=== PATIENT | female | born 1950 | race Caucasian/White ===

== ENCOUNTER 2021-10-09 14:18 | Outpatient (NON) | payer OTHER, SELFPAY ==
[2021-10-09 14:26] LABS: Hematocrit 42.4 % (35.0-42.0); Hemoglobin 13.9 g/dL (11.7-13.8); Mean Corpuscular HGB Conc 32.8 g/dL (32.0-36.0); Mean Corpuscular Hemoglobin 31.6 pg (27.0-31.0); Mean Corpuscular Volume 96.4 fL (78.0-102.0); Platelet Count Result 222 K/mm3 (150-420); Red Cell Distribution Width 13.8 % (11.6-14.4); White Blood Count 7.5 K/mm3 (4.8-10.8)
[2021-10-09 14:40] LABS: Alanine Aminotransferase 21 U/L (14-59); Albumin Level 2.8 g/dL (3.4-5.0); Alkaline Phosphatase 123 U/L (46-116); Anion Gap 5 mmol/L (8-16); Aspartate Amino Transferase 19 U/L (15-37); Bilirubin,Total 0.3 mg/dL (0.00-1.00); Blood Urea Nitrogen 24 mg/dL (7-18); Calcium 8.9 mg/dL (8.5-10.1); Carbon Dioxide 32 mmol/L (21-32); Chloride 102 mmol/L (98-108); Estimated Glomerular Filt Rate > 60; Glucose 96 mg/dL (70-99); Osmolality Calculated 292 mOsm/kg (285-295); Sodium 139 mmol/L (136-145); Total Protein 7.6 g/dL (6.4-8.2)
[2021-10-12 09:03] LABS: Levetiracetam Keppra 13.9
== END 2021-10-09 14:19 | disposition home or self-care (01) ==
LOC: CHSLAB 14:20
PROVIDERS: PCP Nurse Practitioner Family; Visit Provider Nurse Practitioner Family
DX: G40.909 Epilepsy, unspecified, not intractable, without status epilepticus (principal); Z00.00 Encounter for general adult medical examination without abnormal findings; Z78.9 Other specified health status; G93.40 Encephalopathy, unspecified
CPT/HCPCS: 36415; 80053; 80177; 85027

== ENCOUNTER 2022-08-16 12:30 | Emergency (ER) | payer MEDICARE, MEDICAID, SELFPAY ==
[2022-08-16] VITALS (20 sets, daily range): BP systolic 120–145; BP diastolic 60–81; PULSE 57–67; RESP 10–25; TEMP 36.4; O2SAT 97–100
--- NOTE | ~2022-08-16 | CT_ITS ---
EXAMINATION: CT abdomen pelvis w con DATE: 08/16/2022 14:03 INDICATION: Coffee-ground gastric contents. Diarrhea for one week TECHNIQUE: Computed tomography (CT) of the abdomen and pelvis was performed with 100 CC Omnipaque 350 intravenous contrast. Automated exposure control and iterative reconstruction technique were employe d. Exam dose: 269.90 mGy-cm total exam DLP. COMPARISON: 02/14/2016 CT abdomen pelvis 06/18/2018 KUB FINDINGS: Mild dependent atelectasis in the lower lobes. Cardiomegaly. No pericardial or pleural effu kevon. No hepatic space-occupying mass lesion is evident. The gallbladder is distended with chronic thickeni ng of the gallbladder wall. The common bile duct measures up to approximately 6.5 mm diameter, stable since 02/14/2016. No pancreatic mass lesion or calcification or pancreatic duct dilatation. Normal morphology of the adrenal glands. No renal mass lesion or urinary tract calculus or hydroureteronephrosis is detected. Gastrostomy tube in stomach. There is a very prominent amount of fecal material in the rectum and colon. No bowel obstruction or i ntraperitoneal free air is evident. This fluid in the endometrial cavity of uterus, measuring up to 6.7 mm AP dimension. The adnexal area s and urinary bladder appear unremarkable. There is atherosclerotic calcification but normal caliber of the abdominal aorta. No intraperitoneal or retroperitoneal or pelvic mass lesion or adenopathy or ascites. Chronic ununited left femoral neck fracture. Osteopenia. IMPRESSION: Gastrostomy tube in stomach Very prominent of fecal material in the rectum and colon consistent with constipation Fluid in the endometrial cavity Chronic distended gallbladder with chronic thickening of the wall, also present on 02/14/2016 Reviewed, dictated and finalized at Location [facility]. Reviewed, dictated and finalized at location B. IMPRESSION: Gastrostomy tube in stomach Very prominent of fecal material in the rectum and colon consistent with consti pation Fluid in the endometrial cavity Chronic distended gallbladder with chronic thickening of the wall, also present on 02/14/2016
[2022-08-16 13:26] LABS: Basophils Percent Auto 0.6 % (0.2-1.2); Eosinophils Absolute Auto 0.4 K/mm3 (0-0.3); Eosinophils Percent Auto 5.2 % (0-4.4); Hematocrit 42.6 % (37.0-47.0); Hemoglobin 13.7 g/dL (12.0-15.0); Immature Granulocyte Absolute 0.02 K/mm3 (0.00-0.031); Immature Granulocyte Percent A 0.3 % (0-0.5); Lymphocytes Absolute Auto 2.63 K/mm3 (0.9-3.2); Lymphocytes Percent Auto 36.7 % (18.3-44.2); Mean Corpuscular HGB Conc 32.2 g/dl (32-36); Mean Corpuscular Hemoglobin 31.4 pg (26-34); Mean Corpuscular Volume 97.7 fl (80-100); Mean Platelet Volume 10.3 fl (7.4-10.4); Monocytes Absolute Auto 0.8 K/mm3 (0.1-0.6); Monocytes Percent Auto 10.5 % (2.6-8.5); Neutrophils Absolute Auto 3.4 K/mm3 (1.3-6.7); Neutrophils Percent Auto 46.7 % (45.5-73.1); Platelet Count Result 230 k/mm3 (150-375); Red Blood Count 4.36 M/mm3 (4.2-5.4); Red Cell Distribution Width 13.2 % (11.5-14.5); White Blood Count 7.2 K/mm3 (4.5-10.0)
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
[2022-08-16 13:36] LABS: Alanine Aminotransferase 18 U/L (6-35); Albumin Level 3.6 g/dL (3.5-5.1); Alkaline Phosphatase 111 U/L (38-126); Aspartate Amino Transferase 24 U/L (14-36); Bilirubin,Total 0.5 mg/dL (0.2-1.3); Blood Urea Nitrogen 30 mg/dL (7-17); Calcium 8.2 mg/dL (8.4-10.2); Carbon Dioxide > 40 mmol/L (22-30); Chloride 97 mmol/L (98-107); Estimated Glomerular Filt Rate > 60; Glucose 101 mg/dL (65-110); Lipase 110 U/L (23-300); Potassium 3.8 mmol/L (3.4-5.0); Sodium 137 mmol/L (137-145)
[2022-08-16] MEDS: SODIUM CHLORIDE 0.9% IV 1,000 ML 999 ML IV CONT (14:13)
[2022-08-16 15:44] LABS: Appearance Urine Clear (Clear); Bacteria Urine None Seen /hpf; Bilirubin Urine Negative (Negative); Blood Urine 3+ (Negative); Color Urine Yellow (Yellow); Glucose Urine UA Negative (Negative); Ketones Urine Negative (Negative); Leukocyte Esterase Ur 2+ LEU/UL (Negative); Nitrate Urine Negative (Negative); Non Pathogenic Casts 0-2; Protein Urine Negative (Negative); RBC Urine 21-50 /hpf (0-2); Specific Grav Ur 1.025 (1.001-1.035); Squamous Epithelial Cell Urine None seen /hpf (Few); pH Urine 8.5 (5.0-9.0)
[2022-08-16 15:54] LABS: Add Urine Microscopic? YES
--- NOTE | 2022-08-16 17:31 | PC.NURSE ---
1720 Soto declined 1730 Yeny Ems-accepted per house sup next on list
== END 2022-08-16 19:37 | disposition home or self-care (01) ==
PROVIDERS: Emergency Provider Emergency Medicine; PCP Nurse Practitioner Family
DX: K59.00 Constipation, unspecified (principal); Z43.1 Encounter for attention to gastrostomy; G40.909 Epilepsy, unspecified, not intractable, without status epilepticus; G83.9 Paralytic syndrome, unspecified; S09.90XS Unspecified injury of head, sequela; R31.9 Hematuria, unspecified; D72.829 Elevated white blood cell count, unspecified; V89.2XXS Person injured in unspecified motor-vehicle accident, traffic, sequela; Z87.820 Personal history of traumatic brain injury
CPT/HCPCS: 36415; 74177; 80053; 81001; 83690; 85025; 86850; 86900; 86901; 87086; 87088; 96360; 99284; J7030; Q9967

== ENCOUNTER 2024-03-17 19:23 | Emergency (ER) | payer MEDICARE, MEDICAID, SELFPAY ==
--- NOTE | ~2024-03-17 | XR_ITS ---
EXAMINATION: XR abdomen gastric tube rechec DATE: 03/17/2024 19:49 INDICATION: Gastrostomy tube replacement. TECHNIQUE: A supine view of the abdomen on 2 radiographs was obtained. COMPARISON: CT abdomen and pelvis 08/16/2022 FINDINGS: There are no dilated loops of bowel. There is a large volume of stool in the colon. There i s a gastrostomy tube in expected position. There is contrast in the tube and in the stomach and duode num. There is an old fracture of left femoral neck with nonunion. IMPRESSION: 1. Gastrostomy tube in expected position. Reviewed, dictated and finalized at location A. [employer] MA[employer]GER
[2024-03-17 19:30] VITALS: BP 159/72; BP 177/74; PULSE 65; PULSE 67; RESP 17; TEMP 35.9; O2SAT 96; O2SAT 98
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
== END 2024-03-17 20:18 ==
PROVIDERS: Emergency Provider Internal Medicine Critical Care Medicine; PCP Family Medicine
DX: Z43.1 Encounter for attention to gastrostomy (principal); G82.50 Quadriplegia, unspecified; S06.9XAS Unspecified intracranial injury with loss of consciousness status unknown, sequela; X58.XXXS Exposure to other specified factors, sequela
CPT/HCPCS: 43762; 99283

== ENCOUNTER 2024-03-18 06:48 | Emergency (ER) | payer MEDICARE, MEDICAID, SELFPAY ==
--- NOTE | ~2024-03-18 | XR_ITS ---
Supine portable view of the abdomen Clinical history: G-tube placement Findings: Percutaneous gastrostomy tube is present, with contrast and NG tube are opacifying proximal small bowel. No abnormal extravasation of contrast evident. Bowel gas pattern is nonspecific. No melony dence for obstruction or free air. No abnormal mass lesion or calcification is seen. Osseous structur es are intact. Impression: Percutaneous gastrostomy tube appropriately located. No abnormal extravasation of contrast. Reviewed, dictated and finalized at location M. WIRER Impression: Percutaneous gastrostomy tube appropriately located. No abnormal extravasation of contrast.
[2024-03-18 06:54] VITALS: PULSE 75; RESP 18; TEMP 35.9; O2SAT 99
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
--- NOTE | 2024-03-18 07:07 | PC.NURSE ---
RN and machines technician attempted to obtain patient blood pressure several times upon patient arrival without success due to patient contracture. Patient report passed to day shift (Torito) for continuity of care, including need for blood pressure to be re-attempted. patient given multiple warm blankets for comfort and adjusted on stretcher.
[2024-03-18 07:20] VITALS: BP 136/79
[2024-03-18 08:05] VITALS: BP 136/79; PULSE 75; RESP 18; O2SAT 94
--- NOTE | 2024-03-18 08:06 | PC.NURSE ---
call to [facility] for transport back to [facility]. awaiting arrival.
== END 2024-03-18 08:41 | disposition home or self-care (01) ==
PROVIDERS: Emergency Provider Emergency Medicine; PCP Family Medicine
DX: Z43.1 Encounter for attention to gastrostomy (principal)
CPT/HCPCS: 99283

== ENCOUNTER 2024-03-19 01:20 | Emergency (ER) | payer MEDICARE, MEDICAID, SELFPAY ==
[2024-03-19 01:20] VITALS: BP 100/74; PULSE 70; RESP 20; TEMP 36.6; O2SAT 97
--- NOTE | 2024-03-19 01:30 | PC.NURSE ---
Pts g-tube flushed w/ 60ml water slowly to gravity per order. Pt tolerated well and no blockage or overflow noted fro g-tube site.
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
--- NOTE | 2024-03-19 01:45 | PC.NURSE ---
Call back [facility] to [facility] Chantal. Report given about pt return and that g-tube site works well. Informed that pt is coming back w/ order to hold G-tube feedings ann and f/u w/ PCP and GI in AM. [facility] here on standby to return pt.
[2024-03-19 01:50] VITALS: BP 111/68; PULSE 71; RESP 18; O2SAT 98
== END 2024-03-19 01:50 ==
LOC: CHSED 01:58
PROVIDERS: Emergency Provider Emergency Medicine; PCP Family Medicine
DX: K94.23 Gastrostomy malfunction (principal)
CPT/HCPCS: 99282

== ENCOUNTER 2024-03-25 07:46 | Inpatient (IN) | payer MEDICARE, MEDICAID, SELFPAY ==
[2024-03-25] VITALS (17 sets, daily range): BP systolic 105–145; BP diastolic 56–91; PULSE 82–101; RESP 16–24; TEMP 36.9–37.9; O2SAT 91–100; BMI 15.7
--- NOTE | ~2024-03-25 | CT_ITS ---
EXAMINATION: CT chest abdomen pelvis w con DATE: 03/25/2024 08:59 INDICATION: Sepsis. Infected G-tube site. Cough and fever. TECHNIQUE: Computed tomography (CT) of the chest, abdomen, and pelvis was performed with 100 mL Omnip aque-350 intravenous contrast. Automated exposure control and iterative reconstruction technique were employed. The dose-length product was 306.16 mGy-cm. COMPARISON: 08/16/2022 FINDINGS: CHEST CT: Right middle lobe collapse. There is also near complete collapse of the left lower lobe and lingula. There is a region of hypoenhancement within the collapsed portion of the left lower lobe particularly in the superior segment suggesting superimposed pneumonia. There is additional mild dependent atelec tasis in the right lower lobe. No pulmonary edema or pleural effusion. Heart size is normal. Atherosc lerotic coronary artery calcific location. No pericardial effusion. Thoracic aorta is normal in calib er with no dissection. No pathologically enlarged thoracic lymphadenopathy. Mild thoracic levoscolios is with mild spondylosis. ABDOMEN/PELVIS CT: Percutaneous gastrostomy tube bulb in the distal body the stomach. Stable appearance of the gallbladd er with chronic wall thickening and fixed fold extending across the midportion of the gallbladder lik albertina sequela of chronic cholecystitis. The mild spondylosis underlying the left hemidiaphragm. Liver, pancreas, bilateral adrenal glands and right kidney are normal. Interval 8 mm exophytic cyst at the l ower pole of the left kidney. Large amount of colonic stool with 8.7 x 7.9 cm all of stool at the rec tom consistent with and constipation and fecal impaction. There are few diverticula along the descend ing and sigmoid colon without adjacent inflammatory change to suggest diverticulitis. Small bowel and appendix are normal. The stool-filled rectum exerts mass effect upon the normal bladder as well as a nteverted uterus. The endometrial complex appears mildly thickened measuring 6 mm. Bilateral adnexa a re unremarkable. No free intraperitoneal gas or fluid. No pathologically enlarged abdominal or pelvic lymphadenopathy. 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 IMPRESSION: 1. Collapse of the right middle lobe and in near complete collapse of the left lower lobe and lingula with regions of hypoenhancement in the collapsed left lower lobe suspicious for superimposed pneumon ia. 2. Stable appearance of the gallbladder with thickened murguia and unchanged central foraminal likely s equela of chronic cholecystitis. 3. Large amount of colonic stool with 8.7 cm ball of stool at rectum consistent with constipation wit h fecal impaction. 4. Endometrial complex measures 6 mm which would be mildly thickened in the absence of hormone replac ement. Correlate with medication history and for any abnormal uterine bleeding and could consider pel payton ultrasound for further evaluation as clinically indicated. 5. Chronic nonunited fracture at the left femoral neck with significant secondary osteolysis with los s of bone stock at the femoral head and neck. 6. Percutaneous gastrostomy tube in the body the stomach. 7. Mild splenosis in the left upper quadrant. Reviewed, dictated and finalized at location A. [employer] IMPRESSION: 1. Collapse of the right middle lobe and in near complete collapse of the left lower lobe and lingula with regions of hypoenhancement in the collapsed left lo wer lobe suspicious for superimposed pneumonia. 2. Stable appearance of the gallbladder with thickened murguia and unchanged cent ral foraminal likely sequela of chronic cholecystitis. 3. Large amount of colonic stool with 8.7 cm ball of stool at rectum consistent with constipation with fecal impaction. 4. Endometrial complex measures 6 mm which would be mildly thickened in the abs ence of hormone replacement. Correlate with medication history and for any abno rmal uterine bleeding and could consider pelvic ultrasound for further evaluati on as clinically indicated. 5. Chronic nonunited fracture at the left femoral neck with significant seconda ry osteolysis with loss of bone stock at the femoral head and neck. 6. Percutaneous gastrostomy tube in the body the stomach. 7. Mild splenosis in the left upper quadrant.
[2024-03-25] MEDS: SODIUM CHLORIDE 0.9% IV 1,000 ML 999 ML IV CONT (07:46)
--- NOTE | 2024-03-25 07:48 | PC.NURSE ---
Per Family and EMS patient is baseline mental status.
--- NOTE | 2024-03-25 07:50 | ECG_ITS ---
Test Date: 2024-03-25 08:04:42 Measurements Intervals [place] Rate: 98 P: 100 SD: 128 QRS: 109 QRSD: 92 T: 62 QT: 337 QTc: 432 Interpretive Statements SINUS RHYTHM ARM LEADS REVERSED INCOMPLETE RIGHT BUNDLE BRANCH BLOCK BORDERLINE ST-T WAVE ABNORMALITY- ANTEROLAT/INF LEADS BORDERLINE ECG No previous ECG available for comparison Electronically Signed On 03-25-2024 08:25:07 WELL DRILL OPERATOR by Jules Harrison D.O.
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
--- NOTE | 2024-03-25 08:02 | PC.NURSE ---
Covid culture sent to lab
[2024-03-25 08:12] LABS: Hematocrit 41.9 % (35.0-42.0); Hemoglobin 14.3 g/dL (11.7-13.8); Mean Corpuscular HGB Conc 34.1 g/dL (32-36); Mean Corpuscular Hemoglobin 31.4 pg (27.0-31.0); Mean Corpuscular Volume 91.9 fL (78.0-102.0); Mean Platelet Volume 10.4 fl (9.2-11.8); Platelet Count Result 179 K/mm3 (150-420); Red Blood Count 4.56 M/mm3 (4.20-5.40); Red Cell Distribution Width 14.4 % (11.6-14.4)
[2024-03-25 08:17] LABS: White Blood Count 22.1 K/mm3 (4.8-10.8)
[2024-03-25 08:26] LABS: Band Neutrophils Percent 9 % (0-6); Basophils Percent Manual 0 % (0-1); Eosinophils Percent Manual 0 % (1-6); Lymphocytes Absolute Manual 0.66 K/mm3 (1.1-4.5); Lymphocytes Percent Manual 3 % (18-44); Monocytes Absolute Manual 0.66 K/mm3 (0.1-0.90); Monocytes Percent Manual 3 % (3-9); Neutrophils Absolute Manual 20.77 K/mm3 (1.7-7.2); Neutrophils Percent Manual 85 % (46-73); Platelet Estimate Adequate (Adequate); Total Cells Counted 100
[2024-03-25 08:27] LABS: Alanine Aminotransferase 22 U/L (14-59); Albumin Level 2.1 g/dL (3.4-5.0); Alkaline Phosphatase 144 U/L (46-116); Anion Gap 9 mmol/L (4-12); Aspartate Amino Transferase 20 U/L (15-37); Bilirubin,Total 0.4 mg/dL (0.00-1.00); Blood Urea Nitrogen 35 mg/dL (7-18); CRP 14.6 mg/dL (0.0-0.9); Calcium 8.1 mg/dL (8.5-10.1); Carbon Dioxide 35 mmol/L (21-32); Chloride 96 mmol/L (98-108); Estimated Glomerular Filt Rate > 60; Glucose 120 mg/dL (70-99); Lactic Acid Reflex 1.4 mmol/L (0.4-2.0); Osmolality Calculated 299 mOsm/kg (285-295); Sodium 140 mmol/L (136-145); Total Protein 7.4 g/dL (6.4-8.2); Troponin I 28.3 ng/L (0.00-60.4)
[2024-03-25] MEDS: PIPERACILLN/TAZ 3.375GM/NS50ML 3.375 GM/50 ML BAG IVPB (08:27)
[2024-03-25 08:30] LABS: Add Urine Microscopic? YES; Appearance Urine Clear (Clear); Bilirubin Urine Negative (Negative); Blood Urine 1+ (Negative); Color Urine Yellow (Yellow); Glucose Urine UA Negative (Negative); Ketones Urine Negative (Negative); Leukocyte Esterase Ur Negative LEU/UL (Negative); Nitrate Urine Negative (Negative); Protein Urine 2+ (Negative)
[2024-03-25 08:37] LABS: Bacteria Urine 1+ /hpf; Squamous Epithelial Cell Urine Few /hpf (Few); WBC Urine 0-3 /hpf (0-3)
[2024-03-25 08:46] LABS: SARS-CoV-2 RNA PCR Negative (Negative)
[2024-03-25 08:49] LABS: Influenza A QL RT-PCR Negative (Negative); Influenza B QL RT-PCR Negative (Negative); RSV RNA, RT-PCR Negative (Negative)
[2024-03-25] MEDS: KCL 40 MEQ/D5/0.9% SOD CHL 1,000 ML 100 ML IV CONT (09:37)
[2024-03-25] MEDS: VANCOMYCIN 1,000 MG/NS 250 ML 1,000 MG/250 ML BAG 250 MG IVPB (10:11)
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
[2024-03-25] MEDS: FUROSEMIDE INJ 20 MG/2 ML VIAL IV PUSH (11:40)
[2024-03-25] MEDS: IPRATROPIUM 0.5 MG/ALBUTEROL SULFATE 2.5 MG AMPUL.NEB 3 ML INHALATION ×2 (11:46→18:09)
[2024-03-25 13:09] LABS: MRSA (PCR) NOT DETECTED (NOT DETECTE)
--- NOTE | 2024-03-25 14:26 | PC.NURSE ---
Pt arrived on the unit from the ER. Purvi is a pt at [facility] ( [facility] ) . Pt is immobile and non responsive. Pt has contractures of upper and lower limbs. G tube is present but not being used at this time. The skin around the G tube is red and macerated with yellow drainage. Licensed Massage Practitioner has seen pt and assessed her. Pt's sister is the POAshleigh
[2024-03-25] MEDS: levETIRAcetam 500MG/NACL 100ML 500 MG/100 ML BAG 400 MG IVPB (21:51)
[2024-03-25] MEDS: TOLNAFTATE 1% POWDER 45 GM BTL 1 APPLIC TOPICAL (21:52)
[2024-03-26] VITALS (9 sets, daily range): BP systolic 128–136; BP diastolic 68–74; PULSE 78–98; RESP 16–20; TEMP 36.8–37.1; O2SAT 94–98
[2024-03-26 05:46] LABS: Hematocrit 37.8 % (35.0-42.0); Hemoglobin 12.9 g/dL (11.7-13.8); Mean Corpuscular HGB Conc 34.1 g/dL (32-36); Mean Corpuscular Hemoglobin 31.5 pg (27.0-31.0); Mean Corpuscular Volume 92.4 fL (78.0-102.0); Mean Platelet Volume 10.3 fl (9.2-11.8); Platelet Count Result 166 K/mm3 (150-420); Red Blood Count 4.09 M/mm3 (4.20-5.40); Red Cell Distribution Width 14.5 % (11.6-14.4)
[2024-03-26 05:50] LABS: White Blood Count 28.8 K/mm3 (4.8-10.8)
[2024-03-26 06:00] LABS: Band Neutrophils Percent 0 % (0-6); Basophils Percent Manual 0 % (0-1); Eosinophils Percent Manual 0 % (1-6); Lymphocytes Absolute Manual 2.59 K/mm3 (1.1-4.5); Lymphocytes Percent Manual 9 % (18-44); Monocytes Absolute Manual 2.01 K/mm3 (0.1-0.90); Monocytes Percent Manual 7 % (3-9); Neutrophils Absolute Manual 24.19 K/mm3 (1.7-7.2); Neutrophils Percent Manual 84 % (46-73); Platelet Estimate Adequate (Adequate)
[2024-03-26 06:01] LABS: Alanine Aminotransferase 13 U/L (14-59); Albumin Level 1.9 g/dL (3.4-5.0); Alkaline Phosphatase 137 U/L (46-116); Anion Gap 11 mmol/L (4-12); Aspartate Amino Transferase 11 U/L (15-37); Bilirubin,Total 0.7 mg/dL (0.00-1.00); Blood Urea Nitrogen 28 mg/dL (7-18); Calcium 8.2 mg/dL (8.5-10.1); Carbon Dioxide 30 mmol/L (21-32); Chloride 104 mmol/L (98-108); Estimated CRCL calculation 31 ml/min; Estimated Glomerular Filt Rate 58; Glucose 105 mg/dL (70-99); Magnesium 1.6 mg/dL (1.8-2.4); Osmolality Calculated 305 mOsm/kg (285-295); Potassium 3.1 mmol/L (3.5-5.1); Sodium 145 mmol/L (136-145); Total Protein 6.9 g/dL (6.4-8.2)
[2024-03-26] MEDS: IPRATROPIUM 0.5 MG/ALBUTEROL SULFATE 2.5 MG AMPUL.NEB 3 ML INHALATION ×3 (06:03→16:54)
[2024-03-26] MEDS: TOLNAFTATE 1% POWDER 45 GM BTL 1 APPLIC TOPICAL ×2 (08:31→21:40)
[2024-03-26] MEDS: ENOXAPARIN 40 MG/0.4 ML SYRINGE SUB-Q (08:32)
[2024-03-26] MEDS: levETIRAcetam 500MG/NACL 100ML 500 MG/100 ML BAG 400 MG IVPB ×2 (08:56→20:41)
[2024-03-26] MEDS: MAGNESIUM SULF 2 GM/WATER 50ML 2 GM/50 ML BAG IVPB (09:19)
[2024-03-26] MEDS: KCL 40 MEQ/D5/0.9% SOD CHL 1,000 ML 100 ML IV CONT ×2 (09:21→21:02)
[2024-03-26] MEDS: MEROPENEM 1 GM/NS 100 ML 1 GM/100 ML BAG IVPB ×2 (09:27→21:03)
--- NOTE | 2024-03-26 11:55 | PC.NURSE ---
changed to ip status @ 1002
--- NOTE | 2024-03-26 12:01 | P.PNIM_ITS ---
Progress Note: A&P Assessment and Plan (1) Sepsis: Code(s): A41.9 - Sepsis, unspecified organism Status: Acute Assessment and Plan: * patient meeting sepsis criteria with tachycardia, tachypnea, leukocytosis, l ow-grade temp, CT showing superimposed pneumonia, chronic cholecystitis, diverticulitis. after receiving IV fluids patient's heart rate and temperature improved and is now in the 80s. * initial lactic acid 1.4, white blood cell count 22.1 * patient was given 1 L of normal saline while in the ED * blood cultures were obtained * placed on Zosyn and vancomycin * Will check MRSA * WBC increased to 28.8, meropenem added to regimen (2) Pneumonia: Code(s): J18.9 - Pneumonia, unspecified organism Status: Acute Assessment and Plan: * CTA of the chest abdomen and pelvis showed collapse of the right middle lobe and near collapse of the left lower lobe and lingula with regions of hypoenhancement in the collapsed left lower lobe suspicious for superimposed pneumonia * currently on Zosyn and vancomycin * mycoplasma, urine strep, urine Legionella pending * MRSA negative * continue DuoNeb q.6 hours * currently on room air * will order chest PT TID as tolerated to help bring up secretions * aspiration precautions (3) Stercoral colitis: Code(s): K52.89 - Other specified noninfective gastroenteritis and colitis Status: Acute Assessment and Plan: * Large BM yesterday after fleets enema, more comfortable appearing today (4) Chronic cholecystitis: Code(s): K81.1 - Chronic cholecystitis Status: Acute Assessment and Plan: * CTA of the chest abdomen pelvis revealed chronic cholecystitis with sterile coral colitis * continue vancomycin and Zosyn * Increased WBC today 28.8, added meropenem (5) Malfunction of gastrostomy tube: Code(s): K94.23 - Gastrostomy malfunction Status: Acute Assessment and Plan: * patient has been seen 3 or 4 times here in the emergency room with G-tube complaints. The facility states that tube feeding has been leaking around the G-tube site causing skin breakdown * family does not want any intervention for the G-tube and does not want to be transferred to another hospital for GI consult regarding this. They want to just do IV antibiotics for a couple of days to see if the patient responds otherwise planning for hospice. * Case management consulted for hospice (6) Skin breakdown at gastrostomy tube site: Code(s): K94.29 - Other complications of gastrostomy Status: Acute Assessment and Plan: * appears fungal * cleanse area with wound cleanser and then apply nystatin powder daily or when dressing is saturated (7) Seizure disorder: Code(s): G40.909 - Epilepsy, unspecified, not intractable, without status epilepticus Status: Acute Assessment and Plan: * continue Keppra IV 500 b.i.d. (8) History of traumatic brain injury: Code(s): Z87.820 - Personal history of traumatic brain injury Status: Acute Assessment and Plan: of note Time Spent With Patient Time with patient: Greater than 35 minutes Subjective Date/time seen: 03/26/24 12:01 Interval history: Interval history: This is a 73-year-old female with a significant past medical history of severe TBI with G-tube placement, encephalopathy, seizures, quadriplegia who is brought to the ED for fever tachycardia and foul-smelling drainage from her G-tube site at her facility. She has been having issues with her G-tube not working for the past several days and has been evaluated in the ED 3 other times this past week. Most of the history of presenting illness is obtained from the EMR and family at the bedside due to patient being nonverbal at baseline. Workup in the hospital included an abdominal x-ray which shown a G-tube in expected position. 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 Initial labs showed a white blood cell count of 22.1, hemoglobin 14.3, bands 9%, potassium 3.0, chloride 96, calcium 8.1, alk-phos 144, C reactive protein 14.6. A UA was obtained which showed 2+ urine protein, 1+ urine blood, 4+ urine urobilinogen, 3-5 urine RBC, 1+ bacteria. Respiratory panel was obtained and negative for influenza a and B, RSV, COVID. Patient initially meeting sepsis criteria with pulse of 101, respiratory rate of 24, white blood cell count of 22.1, bandemia, known source of infection pneumonia, chronic cholecystitis, diverticulitis. Lactic acid was 1.4. Blood cultures were obtained and are pending. Patient was given 1 L of normal saline, Zosyn, vancomycin, 40 mEq of potassium while in the ED. The patient's sister is the POA and did not want to be sent to another hospital for for evaluation of her G- tube as they plan on making her hospice / comfort if she does not turn around with IV antibiotics. She also agreed to no escalation of care and is currently DNR DNI. I discussed her guarded prognosis and answered all of the POA's questions to satisfaction. Subjective: Patient appears more comfortable today. She has a stronger cough. Sister is at the bedside and was updated on her condition. Plan is to get hospice involved. Labs reviewed. Review of Systems Review of Systems: ROS unobtainable: Yes unobtainable due to medical condition and unobtainable due to mental status Exam Narrative: General: Chronically ill-appearing, severely malnourished Head: encephalopathic at baseline Eyes: PERRLA, sclera clear ENT: moist mucous membranes, nasal passages clear, poor dentition Cardiac: Normal S1 and S2. No murmur, gallops or friction rubs, peripheral pulses intact. Respiratory: Lungs course, weak nonproductive cough, currently on room air Gastrointestinal: soft, non-distended, non-tender, normoactive bowel sounds. G- tube in place and clamped : incontinence Extremities: contractures of bilateral upper extremity, quadriplegia Skin: skin around G-tube site appears to be fungal with erythema Neuro: Alert Objective Data Vital Signs Vital Signs: Vital Signs - 24 hr 03/25/24 12:02 03/25/24 16:00 03/25/24 18:11 Temperature 99.8 F H Pulse Rate 86 90 86 Respiratory Rate 22 H 24 H 22 H Blood Pressure 132/74 Pulse Oximetry 93 95 95 Oxygen Delivery Room Air 03/25/24 18:30 03/26/24 00:00 03/26/24 06:00 Temperature 98.2 F Pulse Rate 82 98 78 Respiratory Rate 22 H 16 20 Blood Pressure 136/68 Pulse Oximetry 96 98 95 Oxygen Delivery Room Air 03/26/24 06:08 03/26/24 08:00 Temperature 98.8 F Pulse Rate 82 92 Respiratory Rate 20 20 Blood Pressure 128/74 Pulse Oximetry 97 94 Oxygen Delivery Room Air Intake/Output Intake/Output: Intake & Output 03/23/24 03/24/24 03/25/24 03/26/24 23:59 23:59 23:59 23:59 Intake Total 2400 250 Balance 2400 250 Meds/Results Medications: Active Medications Generic Name Dose Route Start Last Admin Trade Name Freq PRN Reason Stop Dose Admin Albuterol/Ipratropium 3 ml 03/25/24 12:30 03/26/24 06:03 Ipratropium 0.5 Mg/Albuterol Sulfate 2.5 Mg Ampul.Neb 3 Ml INHALATION 3 ml Q6HRT VIRIDIANA Administration Clotrimazole 1 applic 03/25/24 17:00 03/26/24 09:22 Betamethasone/Clotrimazole Cream 15 Gm Tube TOPICAL Not Given BID VIRIDIANA Enoxaparin Sodium 40 mg 03/26/24 09:00 03/26/24 08:32 Enoxaparin 40 Mg/0.4 Ml Syringe SUB-Q 40 mg DAILY VIRIDIANA Administration Vancomycin HCl 750 mg in 250 mls @ 250 mls/hr 03/26/24 22:00 Vancomycin 750 Mg/Ns 250 Ml IVPB Q36H VIRIDIANA Levetiracetam 500 mg in 100 mls @ 400 mls/hr 03/25/24 21:00 03/26/24 09:15 Keppra Iv IVPB Infused Q12HR VIRIDIANA Infusion Potassium Chloride/Dextrose/Sod Cl 1,000 mls @ 100 mls/hr 03/26/24 08:50 03/26/24 09:21 Kcl 40 Meq/D5ns IV CONT 100 mls/hr .Q10H VIRIDIANA Administration Meropenem 1 gm in 100 mls @ 200 mls/hr 03/26/24 09:00 03/26/24 10:00 IVPB Infused Q12HR VIRIDIANA Infusion Morphine Sulfate 2 mg 03/25/24 10:32 Morphine Sulfate (*Crx) 2 Mg/Ml Inj IV PUSH Q4H PRN Pain Rated 7-10 Ondansetron HCl 4 mg 03/25/24 11:00 Ondansetron Inj 4 Mg/2 Ml Vial IV PUSH Q6H PRN Nausea And Vomiting Tolnaftate 1 applic 03/25/24 21:00 03/26/24 08:31 Tolnaftate 1% Powder 45 Gm Btl TOPICAL 1 applic Q12HR VIRIDIANA Administration Radiology Results: ITS Impressions Chest/Abdomen/Pelvis CT 03/25/24 09:14 IMPRESSION: 1. Collapse of the right middle lobe and in near complete collapse of the left lower lobe and lingula with regions of hypoenhancement in the collapsed left lower lobe suspicious for superimposed pneumonia. 2. Stable appearance of the gallbladder with thickened murguia and unchanged central foraminal likely sequela of chronic cholecystitis. 3. Large amount of colonic stool with 8.7 cm ball of stool at rectum consistent with constipation with fecal impaction. 4. Endometrial complex measures 6 mm which would be mildly thickened in the absence of hormone replacement. Correlate with medication history and for any abnormal uterine bleeding and could consider pelvic ultrasound for further evalu ation as clinically indicated. 5. 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 6. Percutaneous gastrostomy tube in the body the stomach. 7. Mild splenosis in the left upper quadrant. Labs Labs: Laboratory Results - last 24 hr 03/25/24 03/26/24 11:45 05:37 WBC 28.8 H* RBC 4.09 L Hgb 12.9 Hct 37.8 MCV 92.4 MCH 31.5 H MCHC 34.1 RDW 14.5 H Plt Count 166 MPV 10.3 Immature Gran % (Auto) Not Reportable Neut % (Auto) Not Reportable Lymph % (Auto) Not Reportable [place] % (Auto) Not Reportable Eos % (Auto) Not Reportable Baso % (Auto) Not Reportable Lymph # (Auto) Not Reportable [place] # (Auto) Not Reportable Eos # (Auto) Not Reportable Baso # (Auto) Not Reportable Abs Immat Gran (auto) Not Reportable Absolute Neuts (auto) Not Reportable Absolute Nucleated RBC Not Reportable Neutrophils % (Manual) 84 H Band Neutrophils % 0 Lymphocytes % (Manual) 9 L Monocytes % (Manual) 7 Eosinophils % (Manual) 0 L Basophils % (Manual) 0 Nucleated RBC % Not Reportable Abs Neuts (Manual) 24.19 H Abs Lymphs (Manual) 2.59 Abs Monocytes (Manual) 2.01 H Absolute Eos (Manual) 0.00 L Abs Basophils (Manual) 0.00 Platelet Estimate Adequate Schistocytes Not Reportable Sodium 145 Potassium 3.1 L Chloride 104 Carbon Dioxide 30 Anion Gap 11 BUN 28 H Creatinine 0.95 Estim Creat Clear Calc 31 Estimated GFR 58 L Glucose 105 H Calculated Osmolality 305 H Calcium 8.2 L Magnesium 1.6 L Total Bilirubin 0.7 AST 11 L ALT 13 L Alkaline Phosphatase 137 H Total Protein 6.9 Albumin 1.9 L Nasal MRSA (PCR) Not detected Quality VTE Prophylaxis VTE prophylaxis: pharmacologic ordered
[2024-03-26] MEDS: VANCOMYCIN 750 MG/NS 250 ML 750 MG/250 ML BAG 250 MG IVPB (21:36)
[2024-03-27] VITALS (9 sets, daily range): BP systolic 123–130; BP diastolic 59–62; PULSE 78–88; RESP 16–20; TEMP 36.3–36.8; O2SAT 94–98
[2024-03-27] MEDS: IPRATROPIUM 0.5 MG/ALBUTEROL SULFATE 2.5 MG AMPUL.NEB 3 ML INHALATION ×4 (00:52→18:08)
[2024-03-27 05:18] LABS: Basophils Absolute Auto 0.05 K/mm3 (0.00-0.10); Basophils Percent Auto 0.3 % (0.0-1.0); Eosinophils Absolute Auto 0.07 K/mm3 (0.02-0.50); Eosinophils Percent Auto 0.4 % (1.0-6.0); Hematocrit 35.2 % (35.0-42.0); Hemoglobin 11.2 g/dL (11.7-13.8); Immature Granulocyte Absolute 0.13 K/mm3 (0.00-0.00); Immature Granulocyte Percent A 0.7 % (0.0-0.0); Lymphocytes Absolute Auto 1.76 K/mm3 (1.10-4.50); Lymphocytes Percent Auto 9.1 % (18.0-42.0); Mean Corpuscular HGB Conc 31.8 g/dL (32-36); Mean Corpuscular Hemoglobin 30.8 pg (27.0-31.0); Mean Corpuscular Volume 96.7 fL (78.0-102.0); Mean Platelet Volume 10.8 fl (9.2-11.8); Monocytes Absolute Auto 1.23 K/mm3 (0.10-0.90); Monocytes Percent Auto 6.4 % (2.0-11.0); Neutrophils Absolute Auto 16.08 K/mm3 (1.70-7.20); Neutrophils Percent Auto 83.1 % (50.0-70.0); Platelet Count Result 149 K/mm3 (150-420); Red Blood Count 3.64 M/mm3 (4.20-5.40); Red Cell Distribution Width 14.8 % (11.6-14.4); White Blood Count 19.3 K/mm3 (4.8-10.8)
[2024-03-27 05:34] LABS: Alanine Aminotransferase 14 U/L (14-59); Albumin Level 1.7 g/dL (3.4-5.0); Alkaline Phosphatase 126 U/L (46-116); Anion Gap 10 mmol/L (4-12); Aspartate Amino Transferase 13 U/L (15-37); Bilirubin,Total 0.5 mg/dL (0.00-1.00); Blood Urea Nitrogen 24 mg/dL (7-18); Calcium 7.7 mg/dL (8.5-10.1); Carbon Dioxide 25 mmol/L (21-32); Chloride 113 mmol/L (98-108); Estimated CRCL calculation 41 ml/min; Estimated Glomerular Filt Rate > 60; Glucose 142 mg/dL (70-99); Osmolality Calculated 312 mOsm/kg (285-295); Potassium 3.6 mmol/L (3.5-5.1); Sodium 148 mmol/L (136-145); Total Protein 5.8 g/dL (6.4-8.2)
[2024-03-27] MEDS: KCL 40 MEQ/D5/0.9% SOD CHL 1,000 ML 100 ML IV CONT ×2 (07:28→17:27)
--- NOTE | 2024-03-27 08:15 | PC.NURSE ---
P:atient SPO2 88%, O2 applied at 2 l per n/c and SPO2 94%, all other vs stable and [employer] is aware.
[2024-03-27] MEDS: ENOXAPARIN 40 MG/0.4 ML SYRINGE SUB-Q (08:30)
[2024-03-27] MEDS: levETIRAcetam 500MG/NACL 100ML 500 MG/100 ML BAG 100 MG IVPB ×2 (08:30→21:12)
[2024-03-27] MEDS: MEROPENEM 1 GM/NS 100 ML 1 GM/100 ML BAG IVPB ×2 (08:54→21:35)
[2024-03-27] MEDS: TOLNAFTATE 1% POWDER 45 GM BTL 1 APPLIC TOPICAL ×2 (08:59→21:13)
--- NOTE | 2024-03-27 08:59 | P.PNIM_ITS ---
Progress Note: A&P Assessment and Plan (1) Sepsis: Code(s): A41.9 - Sepsis, unspecified organism Status: Acute Assessment and Plan: * patient meeting sepsis criteria with tachycardia, tachypnea, leukocytosis, l ow-grade temp, CT showing superimposed pneumonia, chronic cholecystitis, diverticulitis. after receiving IV fluids patient's heart rate and temperature improved and is now in the 80s. * initial lactic acid 1.4, white blood cell count 22.1 * patient was given 1 L of normal saline while in the ED * blood cultures were obtained * placed on Zosyn, meropenem, and vancomycin * MRSA negative * WBC down to 19.3 (2) Pneumonia: Code(s): J18.9 - Pneumonia, unspecified organism Status: Acute Assessment and Plan: * CTA of the chest abdomen and pelvis showed collapse of the right middle lobe and near collapse of the left lower lobe and lingula with regions of hypoenhancement in the collapsed left lower lobe suspicious for superimposed pneumonia * currently on Zosyn and vancomycin * mycoplasma, urine strep, urine Legionella pending * MRSA negative * continue DuoNeb q.6 hours * currently on room air * will order chest PT TID as tolerated to help bring up secretions * aspiration precautions (3) Stercoral colitis: Code(s): K52.89 - Other specified noninfective gastroenteritis and colitis Status: Acute Assessment and Plan: * Large BM on 03/25/2024 after fleets enema, more comfortable appearing today (4) Chronic cholecystitis: Code(s): K81.1 - Chronic cholecystitis Status: Acute Assessment and Plan: * CTA of the chest abdomen pelvis revealed chronic cholecystitis with sterile coral colitis * continue vancomycin, meropenem, and Zosyn * white blood cell count trending down (5) Malfunction of gastrostomy tube: Code(s): K94.23 - Gastrostomy malfunction Status: Acute Assessment and Plan: * patient has been seen 3 or 4 times here in the emergency room with G-tube complaints. The facility states that tube feeding has been leaking around the G-tube site causing skin breakdown * family does not want any intervention for the G-tube and does not want to be transferred to another hospital for GI consult regarding this per the sister who is secondary POA * Case management following * family and Priscilla, the patient's mother who is primary POA, would like to discuss things further with Dr. Merlos before making any decisions regarding hospice. (6) Skin breakdown at gastrostomy tube site: Code(s): K94.29 - Other complications of gastrostomy Status: Acute Assessment and Plan: * appears fungal * cleanse area with wound cleanser and then apply nystatin powder daily or when dressing is saturated (7) Seizure disorder: Code(s): G40.909 - Epilepsy, unspecified, not intractable, without status epilepticus Status: Acute Assessment and Plan: * continue Keppra IV 500 b.i.d. (8) History of traumatic brain injury: Code(s): Z87.820 - Personal history of traumatic brain injury Status: Acute Assessment and Plan: of note Time Spent With Patient Time with patient: 25 - 35 minutes Subjective Date/time seen: 03/27/24 14:23 Interval history: Interval history: This is a 73-year-old female with a significant past medical history of severe TBI with G-tube placement, encephalopathy, seizures, quadriplegia who is brought to the ED for fever tachycardia and foul-smelling drainage from her G-tube site at her facility. She has been having issues with her G-tube not working for the past several days and has been evaluated in the ED 3 other times this past week. Most of the history of presenting illness is obtained from the EMR and family at the bedside due to patient being nonverbal at baseline. Workup in the hospital included an abdominal x-ray which shown a G-tube in expected position. 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 Initial labs showed a white blood cell count of 22.1, hemoglobin 14.3, bands 9%, potassium 3.0, chloride 96, calcium 8.1, alk-phos 144, C reactive protein 14.6. A UA was obtained which showed 2+ urine protein, 1+ urine blood, 4+ urine urobilinogen, 3-5 urine RBC, 1+ bacteria. Respiratory panel was obtained and negative for influenza a and B, RSV, COVID. Patient initially meeting sepsis criteria with pulse of 101, respiratory rate of 24, white blood cell count of 22.1, bandemia, known source of infection pneumonia, chronic cholecystitis, diverticulitis. Lactic acid was 1.4. Blood cultures were obtained and are pending. Patient was given 1 L of normal saline, Zosyn, vancomycin, 40 mEq of potassium while in the ED. The patient's sister is the POA and did not want to be sent to another hospital for for evaluation of her G- tube as they plan on making her hospice / comfort if she does not turn around with IV antibiotics. She also agreed to no escalation of care and is currently DNR DNI. I discussed her guarded prognosis and answered all of the POA's questions to satisfaction. Subjective: Family at bedside, including Priscilla (mother of patient). Long discussion regarding patients current condition and quality of life. I answered all questions to satisfaction. Priscilla would like Dr. Bal's opinion on getting another G tube placed, quality of life, options of full treatment versus hospice. It was decided to wait until Friday to make any further decisions in regards to her care after they have time to discuss with Dr. Bal. labs reviewed. Review of Systems Review of Systems: ROS unobtainable: Yes unobtainable due to medical condition and unobtainable due to mental status Exam Narrative: General: Chronically ill-appearing, severely malnourished Head: encephalopathic at baseline Eyes: PERRLA, sclera clear ENT: moist mucous membranes, nasal passages clear, poor dentition Cardiac: Normal S1 and S2. No murmur, gallops or friction rubs, peripheral pulses intact. Respiratory: Lungs course, weak nonproductive cough, currently on room air Gastrointestinal: soft, non-distended, non-tender, normoactive bowel sounds. G- tube in place and clamped : incontinence Extremities: contractures of bilateral upper extremity, quadriplegia Skin: skin around G-tube site appears to be fungal with erythema with leakage around site Neuro: Alert Objective Data Vital Signs Vital Signs: Vital Signs - 24 hr 03/26/24 12:40 03/26/24 12:54 03/26/24 16:00 Temperature 98.7 F Pulse Rate 84 85 82 Respiratory Rate 20 20 20 Blood Pressure 128/72 Pulse Oximetry 98 98 95 Oxygen Delivery Room Air Oxygen Flow Rate 03/26/24 16:54 03/26/24 17:05 03/27/24 00:00 Temperature 98.2 F Pulse Rate 83 85 88 Respiratory Rate 20 20 16 Blood Pressure 129/61 Pulse Oximetry 97 98 95 Oxygen Delivery Room Air Oxygen Flow Rate 03/27/24 00:52 03/27/24 01:08 03/27/24 08:00 Temperature 97.4 F L Pulse Rate 88 86 80 Respiratory Rate 16 16 20 Blood Pressure 123/59 L Pulse Oximetry 95 96 94 Oxygen Delivery Nasal Cannula Oxygen Flow Rate 2 Intake/Output Intake/Output: Intake & Output 03/24/24 03/25/24 03/26/24 03/27/24 23:59 23:59 23:59 23:59 Intake Total 2400 1700 1000 Balance 2400 1700 1000 Meds/Results Medications: Active Medications Generic Name Dose Route Start Last Admin Trade Name Freq PRN Reason Stop Dose Admin Albuterol/Ipratropium 3 ml 03/25/24 12:30 03/27/24 06:26 Ipratropium 0.5 Mg/Albuterol Sulfate 2.5 Mg Ampul.Neb 3 Ml INHALATION 3 ml Q6HRT VIRIDIANA Administration Clotrimazole 1 applic 03/25/24 17:00 03/26/24 09:22 Betamethasone/Clotrimazole Cream 15 Gm Tube TOPICAL Not Given BID VIRIDIANA Enoxaparin Sodium 40 mg 03/26/24 09:00 03/27/24 08:30 Enoxaparin 40 Mg/0.4 Ml Syringe SUB-Q 40 mg DAILY VIRIDIANA Administration Vancomycin HCl 750 mg in 250 mls @ 250 mls/hr 03/26/24 22:00 03/26/24 22:36 Vancomycin 750 Mg/Ns 250 Ml IVPB Infused Q36H VIRIDIANA Infusion Levetiracetam 500 mg in 100 mls @ 400 mls/hr 03/25/24 21:00 03/27/24 08:30 Keppra Iv IVPB 100 mls/hr Q12HR VIRIDIANA Administration Potassium Chloride/Dextrose/Sod Cl 1,000 mls @ 100 mls/hr 03/26/24 08:50 03/27/24 07:28 Kcl 40 Meq/D5ns IV CONT 100 mls/hr .Q10H VIRIDIANA Administration Meropenem 1 gm in 100 mls @ 200 mls/hr 03/26/24 09:00 03/26/24 21:33 IVPB Infused Q12HR VIRIDIANA Infusion Morphine Sulfate 2 mg 03/25/24 10:32 Morphine Sulfate (*Crx) 2 Mg/Ml Inj IV PUSH Q4H PRN Pain Rated 7-10 Ondansetron HCl 4 mg 03/25/24 11:00 Ondansetron Inj 4 Mg/2 Ml Vial IV PUSH Q6H PRN Nausea And Vomiting Tolnaftate 1 applic 03/25/24 21:00 03/26/24 21:40 Tolnaftate 1% Powder 45 Gm Btl TOPICAL 1 applic Q12HR VIRIDIANA Administration Radiology Results: ITS Impressions Chest/Abdomen/Pelvis CT 03/25/24 09:14 IMPRESSION: 1. Collapse of the right middle lobe and in near complete collapse of the left lower lobe and lingula with regions of hypoenhancement in the collapsed left lower lobe suspicious for superimposed pneumonia. 2. Stable appearance of the gallbladder with thickened murguia and unchanged central foraminal likely sequela of chronic cholecystitis. 3. Large amount of colonic stool with 8.7 cm ball of stool at rectum consistent with constipation with fecal impaction. 4. Endometrial complex measures 6 mm which would be mildly thickened in the absence of hormone replacement. Correlate with medication history and for any abnormal uterine bleeding and could consider pelvic ultrasound for further evaluation as clinically indicated. 5. 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 6. Percutaneous gastrostomy tube in the body the stomach. 7. Mild splenosis in the left upper quadrant. Labs Labs: Laboratory Results - last 24 hr 03/27/24 04:54 WBC 19.3 H RBC 3.64 L Hgb 11.2 L Hct 35.2 MCV 96.7 MCH 30.8 MCHC 31.8 L RDW 14.8 H Plt Count 149 L MPV 10.8 Immature Gran % (Auto) 0.7 H Neut % (Auto) 83.1 H Lymph % (Auto) 9.[address] [facility] % (Auto) 6.4 Eos % (Auto) 0.4 L Baso % (Auto) 0.3 Lymph # (Auto) 1.76 [facility] # (Auto) 1.23 H Eos # (Auto) 0.07 Baso # (Auto) 0.05 Abs Immat Gran (auto) 0.13 H Absolute Neuts (auto) 16.08 H Absolute Nucleated RBC 0.00 Nucleated RBC % 0.0 Sodium 148 H Potassium 3.6 Chloride 113 H Carbon Dioxide 25 Anion Gap 10 BUN 24 H Creatinine 0.70 Estim Creat Clear Calc 41 Estimated GFR > 60 Glucose 142 H Calculated Osmolality 312 H Calcium 7.7 L Total Bilirubin 0.5 AST 13 L ALT 14 Alkaline Phosphatase 126 H Total Protein 5.8 L Albumin 1.7 L Quality VTE Prophylaxis VTE prophylaxis: pharmacologic ordered
[2024-03-28] VITALS (9 sets, daily range): BP systolic 130–143; BP diastolic 57–68; PULSE 66–96; RESP 18–21; TEMP 36.2–36.9; O2SAT 94–99
[2024-03-28] MEDS: IPRATROPIUM 0.5 MG/ALBUTEROL SULFATE 2.5 MG AMPUL.NEB 3 ML INHALATION ×4 (01:04→17:39)
[2024-03-28] MEDS: MORPHINE SULFATE (*CRX) 2 MG/ML INJ IV PUSH ×2 (01:05→22:23)
[2024-03-28] MEDS: KCL 40 MEQ/D5/0.9% SOD CHL 1,000 ML 100 ML IV CONT (02:45)
[2024-03-28 05:57] LABS: Basophils Absolute Auto 0.04 K/mm3 (0.00-0.10); Basophils Percent Auto 0.4 % (0.0-1.0); Eosinophils Absolute Auto 0.43 K/mm3 (0.02-0.50); Hematocrit 29.9 % (35.0-42.0); Hemoglobin 9.8 g/dL (11.7-13.8); Immature Granulocyte Absolute 0.07 K/mm3 (0.00-0.00); Immature Granulocyte Percent A 0.6 % (0.0-0.0); Lymphocytes Absolute Auto 2.36 K/mm3 (1.10-4.50); Lymphocytes Percent Auto 21.9 % (18.0-42.0); Mean Corpuscular HGB Conc 32.8 g/dL (32-36); Mean Corpuscular Hemoglobin 31.2 pg (27.0-31.0); Mean Corpuscular Volume 95.2 fL (78.0-102.0); Mean Platelet Volume 10.8 fl (9.2-11.8); Monocytes Absolute Auto 1.14 K/mm3 (0.10-0.90); Monocytes Percent Auto 10.6 % (2.0-11.0); Neutrophils Absolute Auto 6.74 K/mm3 (1.70-7.20); Neutrophils Percent Auto 62.5 % (50.0-70.0); Platelet Count Result 178 K/mm3 (150-420); Red Blood Count 3.14 M/mm3 (4.20-5.40); White Blood Count 10.8 K/mm3 (4.8-10.8)
[2024-03-28 07:18] LABS: Alanine Aminotransferase 24 U/L (14-59); Albumin Level 1.5 g/dL (3.4-5.0); Alkaline Phosphatase 103 U/L (46-116); Anion Gap 4 mmol/L (4-12); Aspartate Amino Transferase 23 U/L (15-37); Bilirubin,Total 0.4 mg/dL (0.00-1.00); Blood Urea Nitrogen 17 mg/dL (7-18); Calcium 7.7 mg/dL (8.5-10.1); Carbon Dioxide 27 mmol/L (21-32); Chloride 119 mmol/L (98-108); Estimated CRCL calculation 43 ml/min; Estimated Glomerular Filt Rate > 60; Glucose 105 mg/dL (70-99); Osmolality Calculated 311 mOsm/kg (285-295); Potassium 4.2 mmol/L (3.5-5.1); Sodium 150 mmol/L (136-145); Total Protein 5.9 g/dL (6.4-8.2)
[2024-03-28] MEDS: levETIRAcetam 500MG/NACL 100ML 500 MG/100 ML BAG 400 MG IVPB ×2 (08:06→20:59)
[2024-03-28] MEDS: ENOXAPARIN 40 MG/0.4 ML SYRINGE SUB-Q (08:07)
[2024-03-28] MEDS: DEXTROSE 5% 1,000 ML 1,000 ML 100 ML IV CONT ×2 (08:07→17:40)
[2024-03-28] MEDS: MEROPENEM 1 GM/NS 100 ML 1 GM/100 ML BAG IVPB ×2 (08:17→21:22)
[2024-03-28] MEDS: TOLNAFTATE 1% POWDER 45 GM BTL 1 APPLIC TOPICAL ×2 (08:22→21:34)
[2024-03-28 09:39] LABS: Vancomycin Trough 3.6 ug/mL (10.0-15.0)
[2024-03-28] MEDS: VANCOMYCIN 750 MG/NS 250 ML 750 MG/250 ML BAG 250 MG IVPB (10:13)
--- NOTE | 2024-03-28 11:03 | P.PNIM_ITS ---
Progress Note: A&P Assessment and Plan (1) Sepsis: Code(s): A41.9 - Sepsis, unspecified organism Status: Acute Assessment and Plan: * patient meeting sepsis criteria with tachycardia, tachypnea, leukocytosis, l ow-grade temp, CT showing superimposed pneumonia, chronic cholecystitis, diverticulitis. after receiving IV fluids patient's heart rate and temperature improved and is now in the 80s. * initial lactic acid 1.4, white blood cell count 22.1 * patient was given 1 L of normal saline while in the ED * blood cultures showing no growth to date on preliminary read * Continue Zosyn and meropenem * D/C vancomycin * MRSA negative * WBC down to 10.8 (2) Pneumonia: Code(s): J18.9 - Pneumonia, unspecified organism Status: Acute Assessment and Plan: * CTA of the chest abdomen and pelvis showed collapse of the right middle lobe and near collapse of the left lower lobe and lingula with regions of hypoenhancement in the collapsed left lower lobe suspicious for superimposed pneumonia * currently on Zosyn and vancomycin * mycoplasma, urine strep, urine Legionella pending * MRSA negative * continue DuoNeb q.6 hours * currently on room air * will order chest PT TID as tolerated to help bring up secretions * aspiration precautions (3) Stercoral colitis: Code(s): K52.89 - Other specified noninfective gastroenteritis and colitis Status: Acute Assessment and Plan: * Large BM on 03/25/2024 after fleets enema * Will give Lactulose enema today. * Start reglan IV (4) Chronic cholecystitis: Code(s): K81.1 - Chronic cholecystitis Status: Acute Assessment and Plan: * CTA of the chest abdomen pelvis revealed chronic cholecystitis with sterile coral colitis * continue meropenem, and Zosyn * Stop Vancomycin * white blood cell count WNL (5) Malfunction of gastrostomy tube: Code(s): K94.23 - Gastrostomy malfunction Status: Acute Assessment and Plan: * patient has been seen 3 or 4 times here in the emergency room with G-tube complaints. The facility states that tube feeding has been leaking around the G-tube site causing skin breakdown * family does not want any intervention for the G-tube and does not want to be transferred to another hospital for GI consult regarding this per the sister who is secondary POA * Case management following * family and Priscilla, the patient's mother who is primary POA, would like to discuss things further with Dr. Merlos before making any decisions regarding hospice. (6) Skin breakdown at gastrostomy tube site: Code(s): K94.29 - Other complications of gastrostomy Status: Acute Assessment and Plan: * appears fungal * cleanse area with wound cleanser and then apply nystatin powder daily or when dressing is saturated * Will try applying mylanta to G tube site to help decrease irritation of tube feed leakage (7) Seizure disorder: Code(s): G40.909 - Epilepsy, unspecified, not intractable, without status epilepticus Status: Acute Assessment and Plan: * continue Keppra IV 500 b.i.d. (8) History of traumatic brain injury: Code(s): Z87.820 - Personal history of traumatic brain injury Status: Acute Assessment and Plan: of note Time Spent With Patient Time with patient: Greater than 35 minutes Subjective Date/time seen: 03/28/24 11:03 Interval history: Interval history: This is a 73-year-old female with a significant past medical history of severe TBI with G-tube placement, encephalopathy, seizures, quadriplegia who is brought to the ED for fever tachycardia and foul-smelling drainage from her G-tube site at her facility. She has been having issues with her G-tube not working for the past several days and has been evaluated in the ED 3 other times this past week. Most of the history of presenting illness is obtained from the EMR and family at the bedside due to patient being nonverbal at baseline. Workup in the hospital included an abdominal x-ray which shown a G-tube in expected position. 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 Initial labs showed a white blood cell count of 22.1, hemoglobin 14.3, bands 9%, potassium 3.0, chloride 96, calcium 8.1, alk-phos 144, C reactive protein 14.6. A UA was obtained which showed 2+ urine protein, 1+ urine blood, 4+ urine urobilinogen, 3-5 urine RBC, 1+ bacteria. Respiratory panel was obtained and negative for influenza a and B, RSV, COVID. Patient initially meeting sepsis criteria with pulse of 101, respiratory rate of 24, white blood cell count of 22.1, bandemia, known source of infection pneumonia, chronic cholecystitis, diverticulitis. Lactic acid was 1.4. Blood cultures were obtained and are pending. Patient was given 1 L of normal saline, Zosyn, vancomycin, 40 mEq of potassium while in the ED. The patient's sister is the POA and did not want to be sent to another hospital for for evaluation of her G- tube as they plan on making her hospice / comfort if she does not turn around with IV antibiotics. She also agreed to no escalation of care and is currently DNR DNI. I discussed her guarded prognosis and answered all of the POA's questions to satisfaction. Subjective: Resting comfortably in bed. Sister is at the bedside. Labs reviewed. Review of Systems Review of Systems: ROS unobtainable: Yes unobtainable due to medical condition and unobtainable due to mental status Exam Narrative: General: Chronically ill-appearing, severely malnourished Head: encephalopathic at baseline Eyes: PERRLA, sclera clear ENT: moist mucous membranes, nasal passages clear, poor dentition Cardiac: Normal S1 and S2. No murmur, gallops or friction rubs, peripheral pulses intact. Respiratory: Lungs clear in the upper lobes, diminished in lower lobes, weak nonproductive cough, currently on room air Gastrointestinal: soft, non-distended, slightly distended, hypoactive bowel sounds. G-tube in place and clamped-not functioning : incontinence Extremities: contractures of bilateral upper extremity, quadriplegia Skin: skin around G-tube site appears to be fungal with erythema with leakage around site Neuro: Alert Objective Data Vital Signs Vital Signs: Vital Signs - 24 hr 03/27/24 16:00 03/27/24 18:10 11/30/24 18:22 Temperature 98.1 F Pulse Rate 78 78 78 Respiratory Rate 16 20 20 Blood Pressure 130/62 Pulse Oximetry 96 97 98 Oxygen Delivery Nasal Cannula Oxygen Flow Rate 2 2 03/27/24 20:00 03/28/24 00:00 03/28/24 01:00 Temperature 98.5 F Pulse Rate 80 86 73 Respiratory Rate 18 20 20 Blood Pressure 143/60 H Pulse Oximetry 96 94 98 Oxygen Delivery Nasal Cannula Nasal Cannula Oxygen Flow Rate 2 2 2 03/28/24 01:15 03/28/24 05:30 03/28/24 05:45 Temperature Pulse Rate 96 90 96 Respiratory Rate 20 18 20 Blood Pressure Pulse Oximetry 96 95 98 Oxygen Delivery Oxygen Flow Rate 2 2 2 03/28/24 08:00 Temperature 98.5 F Pulse Rate 92 Respiratory Rate 21 H Blood Pressure 138/68 Pulse Oximetry 96 Oxygen Delivery Nasal Cannula Oxygen Flow Rate 2 Intake/Output Intake/Output: Intake & Output 03/25/24 03/26/24 03/27/24 03/28/24 23:59 23:59 23:59 23:59 Intake Total 2400 1700 2398.3 1650 Balance 2400 1700 2398.3 1650 Meds/Results Medications: Active Medications Generic Name Dose Route Start Last Admin Trade Name Freq PRN Reason Stop Dose Admin Albuterol/Ipratropium 3 ml 03/25/24 12:30 03/28/24 05:33 Ipratropium 0.5 Mg/Albuterol Sulfate 2.5 Mg Ampul.Neb 3 Ml INHALATION 3 ml Q6HRT VIRIDIANA Administration Clotrimazole 1 applic 03/25/24 17:00 03/26/24 09:22 Betamethasone/Clotrimazole Cream 15 Gm Tube TOPICAL Not Given BID VIRIDIANA Enoxaparin Sodium 40 mg 03/26/24 09:00 03/28/24 08:07 Enoxaparin 40 Mg/0.4 Ml Syringe SUB-Q 40 mg DAILY VIRIDIANA Administration Levetiracetam 500 mg in 100 mls @ 400 mls/hr 03/25/24 21:00 03/28/24 08:21 Keppra Iv IVPB Infused Q12HR VIRIDIANA Infusion Meropenem 1 gm in 100 mls @ 200 mls/hr 03/26/24 09:00 03/28/24 08:47 IVPB Infused Q12HR VIRIDIANA Infusion Dextrose 1,000 mls @ 100 mls/hr 03/28/24 07:45 03/28/24 08:07 Dextrose 5% 1,000 Ml IV CONT 100 mls/hr .Q10H VIRIDIANA Administration Vancomycin HCl 750 mg in 250 mls @ 250 mls/hr 03/28/24 10:00 03/28/24 10:13 Vancomycin 750 Mg/Ns 250 Ml IVPB 250 mls/hr Q12H VIRIDIANA Administration Morphine Sulfate 2 mg 03/25/24 10:32 03/28/24 01:05 Morphine Sulfate (*Crx) 2 Mg/Ml Inj IV PUSH 2 mg Q4H PRN Administration Pain Rated 7-10 Ondansetron HCl 4 mg 03/25/24 11:00 Ondansetron Inj 4 Mg/2 Ml Vial IV PUSH Q6H PRN Nausea And Vomiting Tolnaftate 1 applic 03/25/24 21:00 03/28/24 08:22 Tolnaftate 1% Powder 45 Gm Btl TOPICAL 1 applic Q12HR VIRIDIANA Administration Radiology Results: ITS Impressions Chest/Abdomen/Pelvis CT 03/25/24 09:14 IMPRESSION: 1. Collapse of the right middle lobe and in near complete collapse of the left lower lobe and lingula with regions of hypoenhancement in the collapsed left lower lobe suspicious for superimposed pneumonia. 2. Stable appearance of the gallbladder with thickened murguia and unchanged central foraminal likely sequela of chronic cholecystitis. 3. Large amount of colonic stool with 8.7 cm ball of stool at rectum consistent with constipation with fecal impaction. 4. Endometrial complex measures 6 mm which would be mildly thickened in the absence of hormone replacement. Correlate with medication history and for any abnormal uterine bleeding and could consider pelvic ultrasound for further evaluation as clinically indicated. 5. 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 6. Percutaneous gastrostomy tube in the body the stomach. 7. Mild splenosis in the left upper quadrant. Labs Labs: Laboratory Results - last 24 hr 03/28/24 03/28/24 05:38 09:21 WBC 10.8 RBC 3.14 L Hgb 9.8 L Hct 29.9 L MCV 95.2 MCH 31.2 H MCHC 32.8 RDW 15.0 H Plt Count 178 MPV 10.8 Immature Gran % (Auto) 0.6 H Neut % (Auto) 62.5 Lymph % (Auto) 21.9 [place] % (Auto) 10.6 Eos % (Auto) 4.0 Baso % (Auto) 0.4 Lymph # (Auto) 2.36 [place] # (Auto) 1.14 H Eos # (Auto) 0.43 Baso # (Auto) 0.04 Abs Immat Gran (auto) 0.07 H Absolute Neuts (auto) 6.74 Absolute Nucleated RBC 0.00 Nucleated RBC % 0.0 Sodium 150 H Potassium 4.2 Chloride 119 H Carbon Dioxide 27 Anion Gap 4 BUN 17 Creatinine 0.66 Estim Creat Clear Calc 43 Estimated GFR > 60 Glucose 105 H Calculated Osmolality 311 H Calcium 7.7 L Total Bilirubin 0.4 AST 23 ALT 24 Alkaline Phosphatase 103 Total Protein 5.9 L Albumin 1.5 L Vancomycin Trough 3.6 L Quality VTE Prophylaxis VTE prophylaxis: pharmacologic ordered
--- NOTE | 2024-03-28 11:33 | PC.NURSE ---
Today at 0740 made APPLIED PSYCHOLOGY TEACHER aware of elevated Sodium level.
[2024-03-28] MEDS: METOCLOPRAMIDE HCL INJ 10 MG/2 ML VIAL 5 MG IV PUSH ×2 (12:54→17:40)
[2024-03-28] MEDS: LACTULOSE ENEMA 200 GM/1,000 ML ENEMA RECTAL (13:06)
--- NOTE | 2024-03-28 13:32 | PC.NURSE ---
Lactulose enema performed on patient. Pt positioned in left corona position. Pt unable to retain at first. Digital examination revealed large mass of stool. Was able to remove large amount of stool. Enema was then restarted and pt was able to retain moderate amount.
[2024-03-28] MEDS: SALINE 0.65% NAS SOLN 44 ML BTL 1 SPRAY NASAL (13:55)
[2024-03-28] MEDS: MAG HYDROX/AL HYDROX/SIMETH 30 ML UDC XX ×3 (13:55→21:39)
--- NOTE | 2024-03-28 14:18 | PC.NURSE ---
Dressing removed, site cleaned. Mylanta and powder applied. Covered with telfa and abd pads.
[2024-03-29] VITALS (12 sets, daily range): BP systolic 133–137; BP diastolic 59–105; PULSE 62–80; RESP 16–20; TEMP 36.2–36.6; O2SAT 94–100
[2024-03-29] MEDS: IPRATROPIUM 0.5 MG/ALBUTEROL SULFATE 2.5 MG AMPUL.NEB 3 ML INHALATION ×4 (00:33→16:58)
[2024-03-29] MEDS: METOCLOPRAMIDE HCL INJ 10 MG/2 ML VIAL 5 MG IV PUSH ×4 (00:33→17:33)
[2024-03-29] MEDS: DEXTROSE 5% 1,000 ML 1,000 ML 100 ML IV CONT ×2 (03:41→13:28)
[2024-03-29 05:29] LABS: Basophils Absolute Auto 0.04 K/mm3 (0.00-0.10); Basophils Percent Auto 0.4 % (0.0-1.0); Eosinophils Absolute Auto 0.78 K/mm3 (0.02-0.50); Eosinophils Percent Auto 7.2 % (1.0-6.0); Hematocrit 29.9 % (35.0-42.0); Hemoglobin 9.9 g/dL (11.7-13.8); Immature Granulocyte Absolute 0.06 K/mm3 (0.00-0.00); Immature Granulocyte Percent A 0.6 % (0.0-0.0); Lymphocytes Absolute Auto 2.52 K/mm3 (1.10-4.50); Lymphocytes Percent Auto 23.4 % (18.0-42.0); Mean Corpuscular HGB Conc 33.1 g/dL (32-36); Mean Corpuscular Hemoglobin 30.9 pg (27.0-31.0); Mean Corpuscular Volume 93.4 fL (78.0-102.0); Monocytes Absolute Auto 1.06 K/mm3 (0.10-0.90); Monocytes Percent Auto 9.8 % (2.0-11.0); Neutrophils Absolute Auto 6.31 K/mm3 (1.70-7.20); Neutrophils Percent Auto 58.6 % (50.0-70.0); Platelet Count Result 187 K/mm3 (150-420); Red Cell Distribution Width 14.4 % (11.6-14.4); White Blood Count 10.8 K/mm3 (4.8-10.8)
[2024-03-29 05:42] LABS: Alanine Aminotransferase 20 U/L (14-59); Albumin Level 1.5 g/dL (3.4-5.0); Alkaline Phosphatase 113 U/L (46-116); Anion Gap 6 mmol/L (4-12); Aspartate Amino Transferase 16 U/L (15-37); Bilirubin,Total 0.6 mg/dL (0.00-1.00); Blood Urea Nitrogen 9 mg/dL (7-18); Calcium 7.6 mg/dL (8.5-10.1); Carbon Dioxide 28 mmol/L (21-32); Chloride 102 mmol/L (98-108); Estimated CRCL calculation 45 ml/min; Estimated Glomerular Filt Rate > 60; Glucose 88 mg/dL (70-99); Osmolality Calculated 279 mOsm/kg (285-295); Potassium 2.7 mmol/L (3.5-5.1); Sodium 136 mmol/L (136-145); Total Protein 5.8 g/dL (6.4-8.2)
[2024-03-29] MEDS: MORPHINE SULFATE (*CRX) 2 MG/ML INJ IV PUSH ×3 (06:10→19:27)
[2024-03-29] MEDS: ENOXAPARIN 40 MG/0.4 ML SYRINGE SUB-Q (08:44)
[2024-03-29] MEDS: MEROPENEM 1 GM/NS 100 ML 1 GM/100 ML BAG IVPB ×2 (08:47→21:16)
[2024-03-29] MEDS: levETIRAcetam 500MG/NACL 100ML 500 MG/100 ML BAG 400 MG IVPB ×2 (08:48→20:52)
[2024-03-29] MEDS: TOLNAFTATE 1% POWDER 45 GM BTL 1 APPLIC TOPICAL ×2 (08:49→20:53)
[2024-03-29] MEDS: MAG HYDROX/AL HYDROX/SIMETH 30 ML UDC XX ×2 (09:00→20:52)
--- NOTE | 2024-03-29 09:35 | PC.NURSE ---
Legal Associate changed dressing on G tube site. Site continues to drain moderate amount of green thin drainage. Site cleansed Magnesium oxide applied, antifungal powder applied, non stick dressing applied and covered with ABD pad. Patient tolerated well.
[2024-03-29] MEDS: KCL 20 MEQ/SW 100 ML 100 ML 50 MEQ IVPB ×2 (09:49→12:43)
--- NOTE | 2024-03-29 10:19 | P.PNIM_ITS ---
Progress Note: A&P Assessment and Plan (1) Sepsis: Code(s): A41.9 - Sepsis, unspecified organism Status: Acute Assessment and Plan: * patient meeting sepsis criteria with tachycardia, tachypnea, leukocytosis, l ow-grade temp, CT showing superimposed pneumonia, chronic cholecystitis, diverticulitis. after receiving IV fluids patient's heart rate and temperature improved and is now in the 80s. * initial lactic acid 1.4, white blood cell count 22.1 * patient was given 1 L of normal saline while in the ED * blood cultures showing no growth to date on preliminary read * Continue Zosyn and meropenem * D/C vancomycin * MRSA negative * WBC down to 10.8 * Family to talk with Dr. Bal (PCP) today about guarded prognosis and transitioning to hospice. (2) Pneumonia: Code(s): J18.9 - Pneumonia, unspecified organism Status: Acute Assessment and Plan: * CTA of the chest abdomen and pelvis showed collapse of the right middle lobe and near collapse of the left lower lobe and lingula with regions of hypoenhancement in the collapsed left lower lobe suspicious for superimposed pneumonia * currently on Zosyn and vancomycin * mycoplasma, urine strep, urine Legionella pending * MRSA negative * continue DuoNeb q.6 hours * currently on room air * will order chest PT TID as tolerated to help bring up secretions * aspiration precautions (3) Stercoral colitis: Code(s): K52.89 - Other specified noninfective gastroenteritis and colitis Status: Acute Assessment and Plan: * Large BM on 03/25/2024 after fleets enema * Start reglan IV * Patient had 1 BM yesterday (4) Chronic cholecystitis: Code(s): K81.1 - Chronic cholecystitis Status: Acute Assessment and Plan: * CTA of the chest abdomen pelvis revealed chronic cholecystitis with sterile coral colitis * Not a candidate for surgical intervention * continue meropenem, and Zosyn * Stop Vancomycin * white blood cell count WNL (5) Malfunction of gastrostomy tube: Code(s): K94.23 - Gastrostomy malfunction Status: Acute Assessment and Plan: * patient has been seen 3 or 4 times here in the emergency room with G-tube complaints. The facility states that tube feeding has been leaking around the G-tube site causing skin breakdown * family does not want any intervention for the G-tube and does not want to be transferred to another hospital for GI consult regarding this per the sister who is secondary POA * Case management following * family and Priscilla, the patient's mother who is primary POA, would like to discuss things further with Dr. Merlos before making any decisions regarding hospice. * Spoke with Dr. Bal today and updated him on her current condition and let him know that Priscilla (mother) would like his opinion about her overall status at this time. Dr. Bal to reach out to family today. (6) Skin breakdown at gastrostomy tube site: Code(s): K94.29 - Other complications of gastrostomy Status: Acute Assessment and Plan: * appears fungal * cleanse area with wound cleanser and then apply nystatin powder daily or when dressing is saturated * Will try applying mylanta to G tube site to help decrease irritation of tube feed leakage (7) Seizure disorder: Code(s): G40.909 - Epilepsy, unspecified, not intractable, without status epilepticus Status: Acute Assessment and Plan: * continue Keppra IV 500 b.i.d. (8) History of traumatic brain injury: Code(s): Z87.820 - Personal history of traumatic brain injury Status: Acute Assessment and Plan: of note Time Spent With Patient Time with patient: Greater than 35 minutes Subjective Date/time seen: 03/29/24 10:19 Interval history: Interval history: This is a 73-year-old female with a significant past medical history of severe TBI with G-tube placement, encephalopathy, seizures, quadriplegia who is brought to the ED for fever tachycardia and foul-smelling drainage from her G-tube site at her facility. She has been having issues with her G-tube not working for the past several days and has been evaluated in the ED 3 other times this past week. Most of the history of presenting illness is obtained from the EMR and family at the bedside due to patient being nonverbal at baseline. Workup in the hospital included an abdominal x-ray which shown a G-tube in expected position. 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 Initial labs showed a white blood cell count of 22.1, hemoglobin 14.3, bands 9%, potassium 3.0, chloride 96, calcium 8.1, alk-phos 144, C reactive protein 14.6. A UA was obtained which showed 2+ urine protein, 1+ urine blood, 4+ urine urobilinogen, 3-5 urine RBC, 1+ bacteria. Respiratory panel was obtained and negative for influenza a and B, RSV, COVID. Patient initially meeting sepsis criteria with pulse of 101, respiratory rate of 24, white blood cell count of 22.1, bandemia, known source of infection pneumonia, chronic cholecystitis, diverticulitis. Lactic acid was 1.4. Blood cultures were obtained and are pending. Patient was given 1 L of normal saline, Zosyn, vancomycin, 40 mEq of potassium while in the ED. The patient's sister is the POA and did not want to be sent to another hospital for for evaluation of her G- tube as they plan on making her hospice / comfort if she does not turn around with IV antibiotics. She also agreed to no escalation of care and is currently DNR DNI. I discussed her guarded prognosis and answered all of the POA's questions to satisfaction. Subjective: Resting comfortably in bed. Sister is at the bedside. Labs reviewed. Patient was weaned to 1L NC overnight. Review of Systems Review of Systems: ROS unobtainable: Yes unobtainable due to medical condition and unobtainable due to mental status Exam Narrative: General: Chronically ill-appearing, severely malnourished Head: encephalopathic at baseline Eyes: PERRLA, sclera clear ENT: moist mucous membranes, nasal passages clear, poor dentition Cardiac: Normal S1 and S2. No murmur, gallops or friction rubs, peripheral pulses intact. Respiratory: Lungs clear in the upper lobes, diminished in lower lobes, weak nonproductive cough, currently on room air Gastrointestinal: soft, non-distended, slightly distended, very hypoactive bowel sounds. G-tube in place and clamped-not functioning : incontinence Extremities: contractures of bilateral upper extremity, quadriplegia Skin: skin around G-tube site appears to be fungal with erythema with leakage around site Neuro: Alert at times Objective Data Vital Signs Vital Signs: Vital Signs - 24 hr 03/28/24 16:00 03/28/24 20:00 03/29/24 00:30 Temperature 97.1 F L Pulse Rate 67 68 70 Respiratory Rate 18 18 16 Blood Pressure 130/57 L Pulse Oximetry 99 96 96 Oxygen Delivery Nasal Cannula Room Air Oxygen Flow Rate 2 03/29/24 00:45 03/28/24 22:00 03/29/24 00:00 Temperature 97.4 F L Pulse Rate 76 66 62 Respiratory Rate 16 18 18 Blood Pressure 137/59 L Pulse Oximetry 97 95 96 Oxygen Delivery Nasal Cannula Nasal Cannula Oxygen Flow Rate 1 1 1 03/29/24 05:37 03/29/24 05:50 03/29/24 07:56 Temperature 97.2 F L Pulse Rate 62 62 65 Respiratory Rate 16 18 Blood Pressure 133/105 H Pulse Oximetry 96 98 98 Oxygen Delivery Nasal Cannula Oxygen Flow Rate 1 1 1 Intake/Output Intake/Output: Intake & Output 03/26/24 03/27/24 03/28/24 03/29/24 23:59 23:59 23:59 23:59 Intake Total 1700 2398.3 3100 1200 Balance 1700 2398.3 3100 1200 Meds/Results Medications: Active Medications Generic Name Dose Route Start Last Admin Trade Name Freq PRN Reason Stop Dose Admin Al Hydrox/Mg Hydrox/Simethicone 30 ml 03/28/24 12:55 03/29/24 09:00 Mag Hydrox/Al Hydrox/Simeth 30 Ml Udc XX 30 ml BID PRN Administration Indigestion Albuterol/Ipratropium 3 ml 03/25/24 12:30 03/29/24 05:36 Ipratropium 0.5 Mg/Albuterol Sulfate 2.5 Mg Ampul.Neb 3 Ml INHALATION 3 ml Q6HRT VIRIDIANA Administration Clotrimazole 1 applic 03/25/24 17:00 03/26/24 09:22 Betamethasone/Clotrimazole Cream 15 Gm Tube TOPICAL Not Given BID [facility] Enoxaparin Sodium 40 mg 03/26/24 09:00 03/29/24 08:44 Enoxaparin 40 Mg/0.4 Ml Syringe SUB-Q 40 mg DAILY VIRIDIANA Administration Levetiracetam 500 mg in 100 mls @ 400 mls/hr 03/25/24 21:00 03/29/24 09:10 Keppra Iv IVPB Infused Q12HR VIRIDIANA Infusion Meropenem 1 gm in 100 mls @ 200 mls/hr 03/26/24 09:00 03/29/24 09:38 IVPB Infused Q12HR VIRIDIANA Infusion Dextrose 1,000 mls @ 100 mls/hr 03/28/24 07:45 03/29/24 03:41 Dextrose 5% 1,000 Ml IV CONT 100 mls/hr .Q10H VIRIDIANA Administration Potassium Chloride 100 mls @ 50 mls/hr 03/29/24 10:00 03/29/24 09:49 Kcl 20 Meq/Sw 100 Ml IVPB 03/29/24 11:59 50 mls/hr ONCE ONE Administration Potassium Chloride 100 mls @ 50 mls/hr 03/29/24 12:00 Kcl 20 Meq/Sw 100 Ml IVPB 03/29/24 13:59 ONCE ONE Metoclopramide HCl 5 mg 03/28/24 12:00 03/29/24 06:06 Metoclopramide Hcl Inj 10 Mg/2 Ml Vial IV PUSH 5 mg Q6HR VIRIDIANA Administration Morphine Sulfate 2 mg 03/25/24 10:32 03/29/24 06:10 Morphine Sulfate (*Crx) 2 Mg/Ml Inj IV PUSH 2 mg Q4H PRN Administration Pain Rated 7-10 Ondansetron HCl 4 mg 03/25/24 11:00 Ondansetron Inj 4 Mg/2 Ml Vial IV PUSH Q6H PRN Nausea And Vomiting Sodium Chloride 1 spray 03/28/24 12:54 03/28/24 13:55 Saline 0.65% Jered Soln 44 Ml Btl NASAL 1 spray Q6HR PRN Administration Congestion Tolnaftate 1 applic 03/25/24 21:00 03/29/24 08:49 Tolnaftate 1% Powder 45 Gm Btl TOPICAL 1 applic Q12HR VIRIDIANA Administration Radiology Results: ITS Impressions Chest/Abdomen/Pelvis CT 03/25/24 09:14 IMPRESSION: 1. Collapse of the right middle lobe and in near complete collapse of the left lower lobe and lingula with regions of hypoenhancement in the collapsed left lower lobe suspicious for superimposed pneumonia. 2. Stable appearance of the gallbladder with thickened murguia and unchanged central foraminal likely sequela of chronic cholecystitis. 3. Large amount of colonic stool with 8.7 cm ball of stool at rectum consistent with constipation with fecal impaction. 4. Endometrial complex measures 6 mm which would be mildly thickened in the absence of hormone replacement. Correlate with medication history and for any abnormal uterine bleeding and could consider pelvic ultrasound for further evaluation as clinically indicated. 5. 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 6. Percutaneous gastrostomy tube in the body the stomach. 7. Mild splenosis in the left upper quadrant. Labs Labs: Laboratory Results - last 24 hr 03/29/24 04:48 WBC 10.8 RBC 3.20 L Hgb 9.9 L Hct 29.9 L MCV 93.4 MCH 30.9 MCHC 33.1 RDW 14.4 Plt Count 187 MPV 11.0 Immature Gran % (Auto) 0.6 H Neut % (Auto) 58.6 Lymph % (Auto) 23.4 [place] % (Auto) 9.8 Eos % (Auto) 7.2 H Baso % (Auto) 0.4 Lymph # (Auto) 2.52 [place] # (Auto) 1.06 H Eos # (Auto) 0.78 H Baso # (Auto) 0.04 Abs Immat Gran (auto) 0.06 H Absolute Neuts (auto) 6.31 Absolute Nucleated RBC 0.00 Nucleated RBC % 0.0 Sodium 136 Potassium 2.7 L Chloride 102 Carbon Dioxide 28 Anion Gap 6 BUN 9 Creatinine 0.63 Estim Creat Clear Calc 45 Estimated GFR > 60 Glucose 88 Calculated Osmolality 279 L Calcium 7.6 L Total Bilirubin 0.6 AST 16 ALT 20 Alkaline Phosphatase 113 Total Protein 5.8 L Albumin 1.5 L Quality VTE Prophylaxis VTE prophylaxis: pharmacologic ordered
[2024-03-29 19:08] LABS: Pneumococcal Antigen Urine NOT DETECTED
[2024-03-30] VITALS (12 sets, daily range): BP systolic 129–140; BP diastolic 55–68; PULSE 66–80; RESP 16–18; TEMP 36.1–36.7; O2SAT 95–100
[2024-03-30] MEDS: DEXTROSE 5% 1,000 ML 1,000 ML 100 ML IV CONT (00:21)
[2024-03-30] MEDS: METOCLOPRAMIDE HCL INJ 10 MG/2 ML VIAL 5 MG IV PUSH ×4 (00:22→18:17)
[2024-03-30] MEDS: IPRATROPIUM 0.5 MG/ALBUTEROL SULFATE 2.5 MG AMPUL.NEB 3 ML INHALATION ×4 (00:22→16:49)
[2024-03-30 05:29] LABS: Basophils Absolute Auto 0.03 K/mm3 (0.00-0.10); Basophils Percent Auto 0.4 % (0.0-1.0); Eosinophils Absolute Auto 0.73 K/mm3 (0.02-0.50); Hematocrit 34.1 % (35.0-42.0); Hemoglobin 11.5 g/dL (11.7-13.8); Immature Granulocyte Absolute 0.06 K/mm3 (0.00-0.00); Immature Granulocyte Percent A 0.7 % (0.0-0.0); Lymphocytes Absolute Auto 2.12 K/mm3 (1.10-4.50); Lymphocytes Percent Auto 26.1 % (18.0-42.0); Mean Corpuscular HGB Conc 33.7 g/dL (32-36); Mean Corpuscular Hemoglobin 31.5 pg (27.0-31.0); Mean Corpuscular Volume 93.4 fL (78.0-102.0); Mean Platelet Volume 10.6 fl (9.2-11.8); Monocytes Absolute Auto 0.74 K/mm3 (0.10-0.90); Monocytes Percent Auto 9.1 % (2.0-11.0); Neutrophils Absolute Auto 4.45 K/mm3 (1.70-7.20); Neutrophils Percent Auto 54.7 % (50.0-70.0); Platelet Count Result 198 K/mm3 (150-420); Red Blood Count 3.65 M/mm3 (4.20-5.40); Red Cell Distribution Width 13.8 % (11.6-14.4); White Blood Count 8.1 K/mm3 (4.8-10.8)
[2024-03-30 05:48] LABS: Alanine Aminotransferase 45 U/L (14-59); Albumin Level 1.4 g/dL (3.4-5.0); Alkaline Phosphatase 238 U/L (46-116); Anion Gap 2 mmol/L (4-12); Aspartate Amino Transferase 44 U/L (15-37); Bilirubin,Total 0.5 mg/dL (0.00-1.00); Blood Urea Nitrogen 5 mg/dL (7-18); Calcium 7.9 mg/dL (8.5-10.1); Carbon Dioxide 34 mmol/L (21-32); Chloride 103 mmol/L (98-108); Estimated CRCL calculation 44 ml/min; Estimated Glomerular Filt Rate > 60; Glucose 99 mg/dL (70-99); Osmolality Calculated 285 mOsm/kg (285-295); Sodium 139 mmol/L (136-145)
[2024-03-30 05:54] LABS: Potassium 2.2 mmol/L (3.5-5.1)
[2024-03-30] MEDS: KCL 20 MEQ/SW 100 ML 100 ML 50 MEQ IVPB ×2 (06:31→09:01)
[2024-03-30] MEDS: levETIRAcetam 500MG/NACL 100ML 500 MG/100 ML BAG 400 MG IVPB ×2 (08:47→20:04)
[2024-03-30] MEDS: ENOXAPARIN 40 MG/0.4 ML SYRINGE SUB-Q (08:55)
[2024-03-30] MEDS: MORPHINE SULFATE (*CRX) 2 MG/ML INJ IV PUSH ×2 (08:56→22:12)
[2024-03-30] MEDS: MEROPENEM 1 GM/NS 100 ML 1 GM/100 ML BAG IVPB ×2 (09:19→20:05)
[2024-03-30] MEDS: TOLNAFTATE 1% POWDER 45 GM BTL 1 APPLIC TOPICAL ×2 (09:30→20:05)
--- NOTE | 2024-03-30 09:45 | PC.NURSE ---
Today at 0615 Potassium order pulled from [facility] and given to patient as ordered. Not signed out on JUN.
--- NOTE | 2024-03-30 10:22 | P.PNIM_ITS ---
Progress Note: A&P Assessment and Plan (1) Sepsis: Code(s): A41.9 - Sepsis, unspecified organism Status: Acute Assessment and Plan: * patient meeting sepsis criteria with tachycardia, tachypnea, leukocytosis, l ow-grade temp, CT showing superimposed pneumonia, chronic cholecystitis, diverticulitis. after receiving IV fluids patient's heart rate and temperature improved and is now in the 80s. * initial lactic acid 1.4, white blood cell count 22.1 * patient was given 1 L of normal saline while in the ED * blood cultures showing no growth to date on preliminary read * Continue meropenem * D/C vancomycin * MRSA negative * WBC down to 10.8 * Family to talk with Dr. Bal (PCP) today about guarded prognosis and transitioning to hospice. Priscilla (mother) is primary, Sarah has secondary POA of Digna. Nixon and Lynne have POA over Priscilla. May have to do surrogate paperwork tomorrow. (2) Pneumonia: Code(s): J18.9 - Pneumonia, unspecified organism Status: Acute Assessment and Plan: * CTA of the chest abdomen and pelvis showed collapse of the right middle lobe and near collapse of the left lower lobe and lingula with regions of hypoenhancement in the collapsed left lower lobe suspicious for superimposed pneumonia * currently on Zosyn and vancomycin * mycoplasma, urine strep, urine Legionella pending * MRSA negative * continue DuoNeb q.6 hours * currently on room air * will order chest PT TID as tolerated to help bring up secretions * aspiration precautions (3) Stercoral colitis: Code(s): K52.89 - Other specified noninfective gastroenteritis and colitis Status: Acute Assessment and Plan: * Large BM on 03/25/2024 after fleets enema * Bowel sounds remain very hypoactive despite Reglan, Lactulose and fleets enemas. (4) Chronic cholecystitis: Code(s): K81.1 - Chronic cholecystitis Status: Acute Assessment and Plan: * CTA of the chest abdomen pelvis revealed chronic cholecystitis with sterile coral colitis * Not a candidate for surgical intervention * continue Meropenem * White blood cell count WNL (5) Malfunction of gastrostomy tube: Code(s): K94.23 - Gastrostomy malfunction Status: Acute Assessment and Plan: * patient has been seen 3 or 4 times here in the emergency room with G-tube complaints. The facility states that tube feeding has been leaking around the G-tube site causing skin breakdown * family does not want any intervention for the G-tube and does not want to be transferred to another hospital for GI consult regarding this per the sister who is secondary POA * Case management following * Family and Priscilla, the patient's mother who is primary POA, would like to discuss things further with Dr. Merlos before making any decisions regarding hospice. * 03/29/[address] Merlos today and updated him on her current condition and let him know that Priscilla (mother) would like his opinion about her overall status at this time. Dr. Merlos to reach out to family today. * 03/30/24: Plan for family meeting with Dr. Merlos tomorrow at 12:30 to discuss Digna's overall condition (6) Skin breakdown at gastrostomy tube site: Code(s): K94.29 - Other complications of gastrostomy Status: Acute Assessment and Plan: * appears fungal * cleanse area with wound cleanser and then apply nystatin powder daily or when dressing is saturated * Will try applying Mylanta to G tube site to help decrease irritation of tube feed leakage (7) Seizure disorder: Code(s): G40.909 - Epilepsy, unspecified, not intractable, without status epilepticus Status: Acute Assessment and Plan: * continue Keppra IV 500 b.i.d. (8) History of traumatic brain injury: Code(s): Z87.820 - Personal history of traumatic brain injury Status: Acute Assessment and Plan: of note Subjective Date/time seen: 03/30/24 10:22 Interval history: Interval history: This is a 73-year-old female with a significant past medical history of severe TBI with G-tube placement, encephalopathy, seizures, quadriplegia who is brought to the ED for fever tachycardia and foul-smelling drainage from her G-tube site at her facility. She has been having issues with her G-tube not working for the past several days and has been evaluated in the ED 3 other times this past week. Most of the history of presenting illness is obtained from the EMR and family at the bedside due to patient being nonverbal at baseline. Workup in the hospital included an abdominal x-ray which shown a G-tube in expected position. 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 Initial labs showed a white blood cell count of 22.1, hemoglobin 14.3, bands 9%, potassium 3.0, chloride 96, calcium 8.1, alk-phos 144, C reactive protein 14.6. A UA was obtained which showed 2+ urine protein, 1+ urine blood, 4+ urine urobilinogen, 3-5 urine RBC, 1+ bacteria. Respiratory panel was obtained and negative for influenza a and B, RSV, COVID. Patient initially meeting sepsis criteria with pulse of 101, respiratory rate of 24, white blood cell count of 22.1, bandemia, known source of infection pneumonia, chronic cholecystitis, diverticulitis. Lactic acid was 1.4. Blood cultures were obtained and are pending. Patient was given 1 L of normal saline, Zosyn, vancomycin, 40 mEq of potassium while in the ED. The patient's sister is the POA and did not want to be sent to another hospital for for evaluation of her G- tube as they plan on making her hospice / comfort if she does not turn around with IV antibiotics. She also agreed to no escalation of care and is currently DNR DNI. I discussed her guarded prognosis and answered all of the POA's questions to satisfaction. Subjective: Family at bedside. Labs reviewed Review of Systems Review of Systems: ROS unobtainable: Yes unobtainable due to medical condition and unobtainable due to mental status Exam Narrative: General: Chronically ill-appearing, severely malnourished Head: encephalopathic at baseline Eyes: PERRLA, sclera clear ENT: moist mucous membranes, nasal passages clear, poor dentition Cardiac: Normal S1 and S2. No murmur, gallops or friction rubs, peripheral pulses intact. Respiratory: Lungs clear in the upper lobes, crackles noted bilateral lower lobes, weak nonproductive cough, currently on room air Gastrointestinal: soft, non-distended, slightly distended, very hypoactive bowel sounds. G-tube in place and clamped-not functioning : incontinence Extremities: contractures of bilateral upper extremity, quadriplegia Skin: skin around G-tube site appears to be fungal with erythema with leakage around site Neuro: Alert at times Objective Data Vital Signs Vital Signs: Vital Signs - 24 hr 03/29/24 11:30 03/29/24 11:39 03/29/24 16:55 Temperature Pulse Rate 66 68 68 Respiratory Rate 20 20 20 Blood Pressure Pulse Oximetry 95 98 94 Oxygen Delivery Oxygen Flow Rate 1 03/29/24 17:03 03/29/24 16:00 03/30/24 00:00 Temperature 97.8 F 97.0 F L Pulse Rate 70 80 70 Respiratory Rate 20 16 16 Blood Pressure 136/59 L 134/55 L Pulse Oximetry 98 98 96 Oxygen Delivery Nasal Cannula Nasal Cannula Oxygen Flow Rate 1 1 03/30/24 00:21 03/30/24 01:00 03/30/24 05:32 Temperature Pulse Rate 69 76 67 Respiratory Rate 16 16 18 Blood Pressure Pulse Oximetry 95 100 98 Oxygen Delivery Oxygen Flow Rate 1 1 1 03/30/24 05:41 03/30/24 07:54 Temperature 96.9 F L Pulse Rate 69 78 Respiratory Rate 16 16 Blood Pressure 129/68 Pulse Oximetry 100 100 Oxygen Delivery Nasal Cannula Oxygen Flow Rate 1 1 Intake/Output Intake/Output: Intake & Output 03/27/24 03/28/24 03/29/24 03/30/24 23:59 23:59 23:59 23:59 Intake Total 2398.3 3100 3600 300 Balance 2398.3 3100 3600 300 Meds/Results Medications: Active Medications Generic Name Dose Route Start Last Admin Trade Name Freq PRN Reason Stop Dose Admin Al Hydrox/Mg Hydrox/Simethicone 30 ml 03/28/24 12:55 03/29/24 20:52 Mag Hydrox/Al Hydrox/Simeth 30 Ml Udc XX 30 ml BID PRN Administration Indigestion Albuterol/Ipratropium 3 ml 03/25/24 12:30 03/30/24 05:31 Ipratropium 0.5 Mg/Albuterol Sulfate 2.5 Mg Ampul.Neb 3 Ml INHALATION 3 ml Q6HRT VIRIDIANA Administration Clotrimazole 1 applic 03/25/24 17:00 03/26/24 09:22 Betamethasone/Clotrimazole Cream 15 Gm Tube TOPICAL Not Given BID VIRIDIANA Enoxaparin Sodium 40 mg 03/26/24 09:00 03/30/24 08:55 Enoxaparin 40 Mg/0.4 Ml Syringe SUB-Q 40 mg DAILY VIRIDIANA Administration Levetiracetam 500 mg in 100 mls @ 400 mls/hr 03/25/24 21:00 03/30/24 09:02 Keppra Iv IVPB Infused Q12HR VIRIDIANA Infusion Meropenem 1 gm in 100 mls @ 200 mls/hr 03/26/24 09:00 03/30/24 10:12 IVPB Infused Q12HR VIRIDIANA Infusion Potassium Chloride/Dextrose/Sod Cl 1,000 mls @ 100 mls/hr 03/30/24 06:15 Kcl 40 Meq/D5ns IV CONT .Q10H VIRIDIANA Potassium Chloride 100 mls @ 50 mls/hr 03/30/24 08:45 03/30/24 09:01 Kcl 20 Meq/Sw 100 Ml IVPB 03/30/24 10:44 50 mls/hr ONCE ONE Administration Metoclopramide HCl 5 mg 03/28/24 12:00 03/30/24 06:39 Metoclopramide Hcl Inj 10 Mg/2 Ml Vial IV PUSH 5 mg Q6HR VIRIDIANA Administration Morphine Sulfate 2 mg 03/25/24 10:32 03/30/24 08:56 Morphine Sulfate (*Crx) 2 Mg/Ml Inj IV PUSH 2 mg Q4H PRN Administration Pain Rated 7-10 Ondansetron HCl 4 mg 03/25/24 11:00 Ondansetron Inj 4 Mg/2 Ml Vial IV PUSH Q6H PRN Nausea And Vomiting Sodium Chloride 1 spray 03/28/24 12:54 03/28/24 13:55 Saline 0.65% Jered Soln 44 Ml Btl NASAL 1 spray Q6HR PRN Administration Congestion Tolnaftate 1 applic 03/25/24 21:00 03/30/24 09:30 Tolnaftate 1% Powder 45 Gm Btl TOPICAL 1 applic Q12HR VIRIDIANA Administration Radiology Results: ITS Impressions Chest/Abdomen/Pelvis CT 03/25/24 09:14 IMPRESSION: 1. Collapse of the right middle lobe and in near complete collapse of the left lower lobe and lingula with regions of hypoenhancement in the collapsed left lower lobe suspicious for superimposed pneumonia. 2. Stable appearance of the gallbladder with thickened murguia and unchanged central foraminal likely sequela of chronic cholecystitis. 3. Large amount of colonic stool with 8.7 cm ball of stool at rectum consistent with constipation with fecal impaction. 4. Endometrial complex measures 6 mm which would be mildly thickened in the absence of hormone replacement. Correlate with medication history and for any abnormal uterine bleeding and could consider pelvic ultrasound for further evaluation as clinically indicated. 5. 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 6. Percutaneous gastrostomy tube in the body the stomach. 7. Mild splenosis in the left upper quadrant. Labs Labs: Laboratory Results - last 24 hr 03/25/24 03/25/24 03/30/24 08:04 11:45 05:20 WBC 8.1 RBC 3.65 L Hgb 11.5 L Hct 34.1 L MCV 93.4 MCH 31.5 H MCHC 33.7 RDW 13.8 Plt Count 198 MPV 10.6 Immature Gran % (Auto) 0.7 H Neut % (Auto) 54.7 Lymph % (Auto) 26.1 [place] % (Auto) 9.1 Eos % (Auto) 9.0 H Baso % (Auto) 0.4 Lymph # (Auto) 2.12 [place] # (Auto) 0.74 Eos # (Auto) 0.73 H Baso # (Auto) 0.03 Abs Immat Gran (auto) 0.06 H Absolute Neuts (auto) 4.45 Absolute Nucleated RBC 0.00 Nucleated RBC % 0.0 Sodium 139 Potassium 2.2 L* Chloride 103 Carbon Dioxide 34 H Anion Gap 2 L BUN 5 L Creatinine 0.64 Estim Creat Clear Calc 44 Estimated GFR > 60 Glucose 99 Calculated Osmolality 285 Calcium 7.9 L Total Bilirubin 0.5 AST 44 H ALT 45 Alkaline Phosphatase 238 H Total Protein 6.0 L Albumin 1.4 L Mycoplasma pneumon IgG 1.48 H Urine Pneumococcal Ag Not detected Quality VTE Prophylaxis VTE prophylaxis: pharmacologic ordered
[2024-03-30 10:50] LABS: Magnesium 1.4 mg/dL (1.8-2.4)
[2024-03-30] MEDS: KCL 40 MEQ/D5/0.9% SOD CHL 1,000 ML 100 ML IV CONT (11:26)
--- NOTE | 2024-03-30 13:36 | PC.NURSE ---
Dressing changed to G tube site. Moderate amount of green thick drainage noted. Site cleansed, Mag ox applied with nystatin powder, telfa and ABD pad. Patient tolerated well.
--- NOTE | 2024-03-30 16:19 | PC.NURSE ---
Patient's IV site in RFA started leaking and had redness around the top edge. IV site discontinued and attempts x2 to place new site. Nurse unable to start site. Patient tolerated it poorly. Call placed to ED for assistance.
[2024-03-31] VITALS (11 sets, daily range): BP systolic 135–160; BP diastolic 66–84; PULSE 78–92; RESP 16; TEMP 36.6–37.3; O2SAT 91–100
[2024-03-31] MEDS: METOCLOPRAMIDE HCL INJ 10 MG/2 ML VIAL 5 MG IV PUSH ×4 (00:34→17:24)
[2024-03-31] MEDS: IPRATROPIUM 0.5 MG/ALBUTEROL SULFATE 2.5 MG AMPUL.NEB 3 ML INHALATION ×4 (00:35→16:47)
[2024-03-31 05:40] LABS: Basophils Absolute Auto 0.06 K/mm3 (0.00-0.10); Basophils Percent Auto 0.7 % (0.0-1.0); Eosinophils Absolute Auto 0.37 K/mm3 (0.02-0.50); Eosinophils Percent Auto 4.4 % (1.0-6.0); Hematocrit 35.6 % (35.0-42.0); Hemoglobin 11.9 g/dL (11.7-13.8); Immature Granulocyte Absolute 0.05 K/mm3 (0.00-0.00); Immature Granulocyte Percent A 0.6 % (0.0-0.0); Lymphocytes Absolute Auto 2.32 K/mm3 (1.10-4.50); Lymphocytes Percent Auto 27.8 % (18.0-42.0); Mean Corpuscular HGB Conc 33.4 g/dL (32-36); Mean Corpuscular Hemoglobin 31.1 pg (27.0-31.0); Monocytes Absolute Auto 0.74 K/mm3 (0.10-0.90); Monocytes Percent Auto 8.9 % (2.0-11.0); Neutrophils Absolute Auto 4.81 K/mm3 (1.70-7.20); Neutrophils Percent Auto 57.6 % (50.0-70.0); Platelet Count Result 293 K/mm3 (150-420); Red Blood Count 3.83 M/mm3 (4.20-5.40); Red Cell Distribution Width 13.8 % (11.6-14.4); White Blood Count 8.4 K/mm3 (4.8-10.8)
[2024-03-31 06:03] LABS: Alanine Aminotransferase 46 U/L (14-59); Albumin Level 1.6 g/dL (3.4-5.0); Alkaline Phosphatase 231 U/L (46-116); Anion Gap 9 mmol/L (4-12); Aspartate Amino Transferase 39 U/L (15-37); Bilirubin,Total 0.5 mg/dL (0.00-1.00); Blood Urea Nitrogen 6 mg/dL (7-18); Calcium 8.4 mg/dL (8.5-10.1); Carbon Dioxide 31 mmol/L (21-32); Chloride 100 mmol/L (98-108); Estimated CRCL calculation 41 ml/min; Estimated Glomerular Filt Rate > 60; Glucose 72 mg/dL (70-99); Osmolality Calculated 286 mOsm/kg (285-295); Sodium 140 mmol/L (136-145); Total Protein 6.7 g/dL (6.4-8.2)
[2024-03-31 06:05] LABS: Potassium 2.4 mmol/L (3.5-5.1)
[2024-03-31] MEDS: KCL 20 MEQ/SW 100 ML 100 ML 50 MEQ IVPB ×2 (07:51)
--- NOTE | 2024-03-31 08:06 | PC.NURSE ---
On March 30 at approximately 0600, KCL 40 Meq/D5/0.9% Sodium Chloride 1000 mL was hung to run at 100 mL/hr. This medication was not scanned, but was pulled from the pyxis and given. Nurse report was given, and day shift saw the medication running.
[2024-03-31 08:50] LABS: Magnesium 1.4 mg/dL (1.8-2.4)
[2024-03-31] MEDS: MEROPENEM 1 GM/NS 100 ML 1 GM/100 ML BAG IVPB (08:56)
[2024-03-31] MEDS: levETIRAcetam 500MG/NACL 100ML 500 MG/100 ML BAG 400 MG IVPB ×2 (10:41→21:42)
[2024-03-31] MEDS: ALBUMIN HUMAN 25% 25 GM/100 ML 100 ML IVPB (10:49)
[2024-03-31] MEDS: TOLNAFTATE 1% POWDER 45 GM BTL 1 APPLIC TOPICAL ×2 (10:50→21:42)
--- NOTE | 2024-03-31 14:05 | P.PNIM_ITS ---
Progress Note: A&P Assessment and Plan (1) Sepsis: Code(s): A41.9 - Sepsis, unspecified organism Status: Acute Assessment and Plan: * patient meeting sepsis criteria with tachycardia, tachypnea, leukocytosis, low-grade temp, CT showing superimposed pneumonia, chronic cholecystitis, diverticulitis. after receiving IV fluids patient's heart rate and temperature improved and is now in the 80s. * initial lactic acid 1.4, white blood cell count 22.1 * patient was given 1 L of normal saline while in the ED * blood cultures showing no growth to date on preliminary read * Continue meropenem * D/C vancomycin * MRSA negative * WBC down to 10.8 * Family to talk with Dr. Bal (PCP) today about guarded prognosis and transitioning to hospice. Priscilla (mother) is primary, Sarah has secondary POA of Digna. Nixon and Lynne have POA over Priscilla. May have to do surrogate paperwork tomorrow. (2) Pneumonia: Code(s): J18.9 - Pneumonia, unspecified organism Status: Acute Assessment and Plan: * CTA of the chest abdomen and pelvis showed collapse of the right middle lobe and near collapse of the left lower lobe and lingula with regions of hypoenhancement in the collapsed left lower lobe suspicious for superimposed pneumonia * currently on Zosyn and vancomycin * mycoplasma, urine strep, urine Legionella pending * MRSA negative * continue DuoNeb q.6 hours * currently on room air * will order chest PT TID as tolerated to help bring up secretions * aspiration precautions * Dysphagia unable to protect airway from secretions (3) Stercoral colitis: Code(s): K52.89 - Other specified noninfective gastroenteritis and colitis Status: Acute Assessment and Plan: * Large BM on 03/25/2024 after fleets enema * Bowel sounds remain very hypoactive despite Reglan, Lactulose and fleets enemas. 03/31/24: * ABD distended * last BM 03/28 * poor motility chronic constipation (4) Chronic cholecystitis: Code(s): K81.1 - Chronic cholecystitis Status: Acute Assessment and Plan: * CTA of the chest abdomen pelvis revealed chronic cholecystitis with sterile coral colitis * Not a candidate for surgical intervention * continue Meropenem * White blood cell count WNL (5) Malfunction of gastrostomy tube: Code(s): K94.23 - Gastrostomy malfunction Status: Acute Assessment and Plan: * patient has been seen 3 or 4 times here in the emergency room with G-tube complaints. The facility states that tube feeding has been leaking around the G-tube site causing skin breakdown * family does not want any intervention for the G-tube and does not want to be transferred to another hospital for GI consult regarding this per the sister who is secondary POA * Case management following * Family and Priscilla, the patient's mother who is primary POA, would like to discuss things further with Dr. Merlos before making any decisions regarding hospice. * 03/29/[address] Merlos today and updated him on her current condition and let him know that Priscilla (mother) would like his opinion about her overall status at this time. Dr. Merlos to reach out to family today. * 03/30/24: Plan for family meeting with Dr. Merlos 03/31 (6) Skin breakdown at gastrostomy tube site: Code(s): K94.29 - Other complications of gastrostomy Status: Acute Assessment and Plan: * appears fungal * cleanse area with wound cleanser and then apply nystatin powder daily or when dressing is saturated * Will try applying Mylanta to G tube site to help decrease irritation of tube feed leakage (7) Seizure disorder: Code(s): G40.909 - Epilepsy, unspecified, not intractable, without status epilepticus Status: Acute Assessment and Plan: * continue Keppra IV 500 b.i.d. 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: Code(s): G83.9 - Paralytic syndrome, unspecified Status: Acute (11) Low serum albumin: Code(s): R77.0 - Abnormality of albumin Status: Acute Assessment and Plan: * 1.4 * transfused 25% IVPB * no oral nutrition * Malnourished Plan Code status: DNR/ DNI DVT prophylaxis: Lovenox Stress ulcer prophylaxis: PT/OT notes: Bedbound Disposition: patient continues admission due to pneumonia with sepsis infected G-tube currently family's discussing placing patient on hospice care decision to be made today currently DNR was decision has been need will need to discuss inpatient or hospice care however they do not want hospice care will then need to discuss means of nutrition. Time Spent With Patient Time with patient: 15 - 25 minutes Subjective Date/time seen: 03/31/24 14:05 Interval history: Interval history: This is a 73-year-old female who was admitted for sepsis secondary to pneumonia G-tube infection. patient with nonfunctioning G-tube severe electrolyte imbalance, family did not want transfer for G-tube interventions care meeting scheduled with primary care physician and family for discussion for hospice ca re. Subjective: Patient sister at bedside update on patient labs and discussed plan for hospice pending conference. Patient nonverbal only responding to painful stimuli. ABD still distended last BM reported 03/28. Review of Systems Review of Systems: ROS unobtainable: Yes unobtainable due to medical condition and unobtainable due to mental status Exam Narrative: General: Chronically ill-appearing, severely malnourished nonverbal Head: encephalopathic at baseline Eyes: PERRLA, sclera clear ENT: Dry mucous membranes Cardiac: Normal S1 and S2. No murmur, gallops or friction rubs, peripheral pulses intact. Respiratory: Lungs clear in the upper lobes, crackles noted bilateral lower lobes, weak nonproductive cough, 2L NC Gastrointestinal: distended, very hypoactive bowel sounds. G-tube in place and clamped-not functioning : incontinence Extremities: contractures of bilateral upper extremity, quadriplegia Skin: skin around G-tube site appears to be fungal with erythema with leakage around site Neuro: Alert to painful stimuli Objective Data Vital Signs Vital Signs: Vital Signs - 24 hr 03/30/24 16:00 03/30/24 16:45 03/30/24 16:55 Temperature 98.0 F Pulse Rate 80 67 73 Respiratory Rate 16 18 18 Blood Pressure 140/67 Pulse Oximetry 96 95 100 Oxygen Delivery Room Air 03/31/24 00:30 03/31/24 01:00 03/31/24 00:00 Temperature 99.2 F Pulse Rate 89 88 89 Respiratory Rate 16 16 16 Blood Pressure 160/66 H Pulse Oximetry 91 99 92 Oxygen Delivery Room Air 03/31/24 05:35 03/31/24 05:46 03/31/24 11:16 Temperature Pulse Rate 92 84 78 Respiratory Rate 16 16 16 Blood Pressure Pulse Oximetry 94 97 95 Oxygen Delivery 03/31/24 11:29 Temperature Pulse Rate 80 Respiratory Rate 16 Blood Pressure Pulse Oximetry 100 Oxygen Delivery Intake/Output Intake/Output: Intake & Output 03/28/24 03/29/24 03/30/24 03/31/24 23:59 23:59 23:59 23:59 Intake Total 3100 3600 1550 400 Balance 3100 3600 1550 400 Meds/Results Medications: Active Medications Generic Name Dose Route Start Last Admin Trade Name Freq PRN Reason Stop Dose Admin Al Hydrox/Mg Hydrox/Simethicone 30 ml 03/28/24 12:55 03/29/24 20:52 Mag Hydrox/Al Hydrox/Simeth 30 Ml Udc XX 30 ml BID PRN Administration Indigestion Albuterol/Ipratropium 3 ml 03/25/24 12:30 03/31/24 11:18 Ipratropium 0.5 Mg/Albuterol Sulfate 2.5 Mg Ampul.Neb 3 Ml INHALATION 3 ml Q6HRT VIRIDIANA Administration Clotrimazole 1 applic 03/25/24 17:00 03/26/24 09:22 Betamethasone/Clotrimazole Cream 15 Gm Tube TOPICAL Not Given BID VIRIDIANA Enoxaparin Sodium 40 mg 03/26/24 09:00 03/31/24 10:50 Enoxaparin 40 Mg/0.4 Ml Syringe SUB-Q Not Given DAILY VIRIDIANA Levetiracetam 500 mg in 100 mls @ 400 mls/hr 03/25/24 21:00 03/31/24 10:56 Keppra Iv IVPB Infused Q12HR VIRIDIANA Infusion Meropenem 1 gm in 100 mls @ 200 mls/hr 03/26/24 09:00 03/31/24 09:26 IVPB 04/01/24 23:59 0 mls/hr Q12HR VIRIDIANA Infusion Potassium Chloride/Dextrose/Sod Cl 1,000 mls @ 100 mls/hr 03/30/24 06:15 03/30/24 11:26 Kcl 40 Meq/D5ns IV CONT 100 mls/hr .Q10H VIRIDIANA Administration Metoclopramide HCl 5 mg 03/28/24 12:00 03/31/24 12:17 Metoclopramide Hcl Inj 10 Mg/2 Ml Vial IV PUSH 5 mg Q6HR VIRIDIANA Administration Morphine Sulfate 2 mg 03/25/24 10:32 03/30/24 22:12 Morphine Sulfate (*Crx) 2 Mg/Ml Inj IV PUSH 2 mg Q4H PRN Administration Pain Rated 7-10 Ondansetron HCl 4 mg 03/25/24 11:00 Ondansetron Inj 4 Mg/2 Ml Vial IV PUSH Q6H PRN Nausea And Vomiting Sodium Chloride 1 spray 03/28/24 12:54 03/28/24 13:55 Saline 0.65% Jered Soln 44 Ml Btl NASAL 1 spray Q6HR PRN Administration Congestion Tolnaftate 1 applic 03/25/24 21:00 03/31/24 10:50 Tolnaftate 1% Powder 45 Gm Btl TOPICAL 1 applic Q12HR VIRIDIANA Administration Radiology Results: ITS Impressions Chest/Abdomen/Pelvis CT 03/25/24 09:14 IMPRESSION: 1. Collapse of the right middle lobe and in near complete collapse of the left lower lobe and lingula with regions of hypoenhancement in the collapsed left lower lobe suspicious for superimposed pneumonia. 2. Stable appearance of the gallbladder with thickened murguia and unchanged central foraminal likely sequela of chronic cholecystitis. 3. Large amount of colonic stool with 8.7 cm ball of stool at rectum consistent with constipation with fecal impaction. 4. Endometrial complex measures 6 mm which would be mildly thickened in the absence of hormone replacement. Correlate with medication history and for any abnormal uterine bleeding and could consider pelvic ultrasound for further evaluation as clinically indicated. 5. 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 6. Percutaneous gastrostomy tube in the body the stomach. 7. Mild splenosis in the left upper quadrant. Labs Labs: Laboratory Results - last 24 hr 03/31/24 05:31 WBC 8.4 RBC 3.83 L Hgb 11.9 Hct 35.6 MCV 93.0 MCH 31.1 H MCHC 33.4 RDW 13.8 Plt Count 293 MPV 10.0 Immature Gran % (Auto) 0.6 H Neut % (Auto) 57.6 Lymph % (Auto) 27.8 [place] % (Auto) 8.9 Eos % (Auto) 4.4 Baso % (Auto) 0.7 Lymph # (Auto) 2.32 [place] # (Auto) 0.74 Eos # (Auto) 0.37 Baso # (Auto) 0.06 Abs Immat Gran (auto) 0.05 H Absolute Neuts (auto) 4.81 Absolute Nucleated RBC 0.00 Nucleated RBC % 0.0 Sodium 140 Potassium 2.4 L* Chloride 100 Carbon Dioxide 31 Anion Gap 9 BUN 6 L Creatinine 0.69 Estim Creat Clear Calc 41 Estimated GFR > 60 Glucose 72 Calculated Osmolality 286 Calcium 8.4 L Magnesium 1.4 L Total Bilirubin 0.5 AST 39 H ALT 46 Alkaline Phosphatase 231 H Total Protein 6.7 Albumin 1.6 L Quality VTE Prophylaxis VTE prophylaxis: pharmacologic ordered -Patient's previous records reviewed on admission -ER notes reviewed in detail on admission -discussed all findings and current treatment plan with patient/Family/POA -Consultations reviewed for recommendations -Patient's disposition for safe discharge discussed with telephonic case manager Dictation performed by [employer] direct speech recognition software, therefore steward/stewardess dining room variants and typographical errors may occur. Hospitalist MIPS Advance Care Plan I have confirmed that the patient's Advanced Care Plan is present, code status is documented, or surrogate decision maker is listed in patient medical record.: Yes Medication Reconciliation I have utilized all available resources to obtain, update and review the patients current medications (includes all prescriptions, OTC, herbals, cannabis, and nutritional supplements).: Yes The patient is not eligible for med reconciliation; the patient is in a emergent medical situation where delaying treatment would jeopardize the patients health.: No
[2024-03-31] MEDS: MORPHINE SULFATE (*CRX) 2 MG/ML INJ IV PUSH (17:24)
[2024-04-01] VITALS: BP 160/78; PULSE 80; RESP 18; TEMP 36.9; O2SAT 95
[2024-04-01] MEDS: METOCLOPRAMIDE HCL INJ 10 MG/2 ML VIAL 5 MG IV PUSH ×2 (00:30→06:22)
[2024-04-01 05:25] LABS: Basophils Absolute Auto 0.03 K/mm3 (0.00-0.10); Basophils Percent Auto 0.5 % (0.0-1.0); Eosinophils Absolute Auto 0.57 K/mm3 (0.02-0.50); Hematocrit 32.9 % (35.0-42.0); Hemoglobin 10.8 g/dL (11.7-13.8); Immature Granulocyte Absolute 0.05 K/mm3 (0.00-0.00); Immature Granulocyte Percent A 0.8 % (0.0-0.0); Lymphocytes Absolute Auto 1.83 K/mm3 (1.10-4.50); Lymphocytes Percent Auto 28.9 % (18.0-42.0); Mean Corpuscular HGB Conc 32.8 g/dL (32-36); Mean Corpuscular Hemoglobin 30.3 pg (27.0-31.0); Mean Corpuscular Volume 92.4 fL (78.0-102.0); Mean Platelet Volume 9.5 fl (9.2-11.8); Monocytes Absolute Auto 0.68 K/mm3 (0.10-0.90); Monocytes Percent Auto 10.7 % (2.0-11.0); Neutrophils Absolute Auto 3.17 K/mm3 (1.70-7.20); Neutrophils Percent Auto 50.1 % (50.0-70.0); Platelet Count Result 322 K/mm3 (150-420); Red Blood Count 3.56 M/mm3 (4.20-5.40); Red Cell Distribution Width 13.9 % (11.6-14.4); White Blood Count 6.3 K/mm3 (4.8-10.8)
[2024-04-01 05:33] VITALS: PULSE 98; RESP 16; O2SAT 93
[2024-04-01] MEDS: IPRATROPIUM 0.5 MG/ALBUTEROL SULFATE 2.5 MG AMPUL.NEB 3 ML INHALATION (05:33)
[2024-04-01 05:45] VITALS: PULSE 88; RESP 16; O2SAT 97
[2024-04-01 05:45] LABS: Alanine Aminotransferase 46 U/L (14-59); Albumin Level 2.2 g/dL (3.4-5.0); Alkaline Phosphatase 183 U/L (46-116); Anion Gap 9 mmol/L (4-12); Aspartate Amino Transferase 46 U/L (15-37); Bilirubin,Total 0.6 mg/dL (0.00-1.00); Blood Urea Nitrogen 6 mg/dL (7-18); Calcium 8.4 mg/dL (8.5-10.1); Carbon Dioxide 33 mmol/L (21-32); Chloride 99 mmol/L (98-108); Estimated CRCL calculation 54 ml/min; Estimated Glomerular Filt Rate > 60; Glucose 73 mg/dL (70-99); Osmolality Calculated 288 mOsm/kg (285-295); Potassium 2.6 mmol/L (3.5-5.1); Sodium 141 mmol/L (136-145); Total Protein 6.7 g/dL (6.4-8.2)
[2024-04-01 08:00] VITALS: BP 146/71; PULSE 84; RESP 16; TEMP 36.3; O2SAT 92
[2024-04-01] MEDS: levETIRAcetam 500MG/NACL 100ML 500 MG/100 ML BAG 400 MG IVPB (09:52)
[2024-04-01] MEDS: TOLNAFTATE 1% POWDER 45 GM BTL 1 APPLIC TOPICAL (09:59)
--- NOTE | 2024-04-01 09:59 | PM.DS ---
DS: Admitting Diagnosis Discharge Date 04/01/2024 Admitting Diagnosis Sepsis secondary to pneumonia and G-tube infection/Malfunction DS: Discharge Diagnosis Discharge Diagnosis (1) Sepsis: Code(s): A41.9 - Sepsis, unspecified organism Status: Acute (2) Pneumonia: Code(s): J18.9 - Pneumonia, unspecified organism Status: Acute (3) Stercoral colitis: Code(s): K52.89 - Other specified noninfective gastroenteritis and colitis Status: Acute (4) Chronic cholecystitis: Code(s): K81.1 - Chronic cholecystitis Status: Acute (5) Malfunction of gastrostomy tube: Code(s): K94.23 - Gastrostomy malfunction Status: Acute (6) Skin breakdown at gastrostomy tube site: Code(s): K94.29 - Other complications of gastrostomy Status: Acute (7) Seizure disorder: Code(s): G40.909 - Epilepsy, unspecified, not intractable, without status epilepticus Status: Acute (8) History of traumatic brain injury: Code(s): Z87.820 - Personal history of traumatic brain injury Status: Acute (9) Hypokalemia: Code(s): E87.6 - Hypokalemia Status: Acute (10) Spastic paralysis: Code(s): G83.9 - Paralytic syndrome, unspecified Status: Acute (11) Low serum albumin: Code(s): R77.0 - Abnormality of albumin Status: Acute (12) Hospice care: Code(s): Z51.5 - Encounter for palliative care Status: Acute Plan Disposition: Discharge home on hospice DS: Summary Hospital Course Reason for hospitalization: Sepsis secondary to pneumonia and G-tube infection/Malfunction/stercoral colitis/fecal impaction/Chronic Cholecystis/ Hospital Course: The patient was a 73-year-old female with a significant past medical history of severe TBI with G-tube placement, encephalopathy, seizures, quadriplegia who is brought to the ED for fever tachycardia and foul-smelling drainage from her G-tube site at her facility. She has been having issues with her G-tube not working for the past several days and has been evaluated in the ED 3 other times this past week. Most of the history of presenting illness is obtained from the EMR and family at the bedside due to patient being nonverbal at baseline. Workup in the hospital included an abdominal x-ray which shown a G-tube in expected position. 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 Respiratory panel was obtained and negative for influenza a and B, RSV, COVID. Patient was then admitted to the medical unit for sepsis without septic shock secondary to pneumonia and possible G-tube infection, sterile coral colitis, chronic cholecystitis, and severe fecal impaction Patient was given 1 L of normal saline, Zosyn, vancomycin, 40 mEq of potassium while in the ED. The patient's sister is the POA and did not want to be sent to another hospital for for evaluation of her G-tube as they plan on making her hospice / comfort if she does not turn around with IV antibiotics. She also agreed to no escalation of care and is currently DNR DNI. during patient's hospitalization she continued to have severe hypokalemia and hypoalbuminemia as well as remaining NPO with malfunctioning G-tube. we continue to administer IV potassium with dextrose 5 and attempted replenish electrolytes. Patient continued to have acute on chronic fecal impaction even after attempts with Lactulose enemas with no improvement to symptoms or removal of impaction. There was several discussions between patient's mother and sister who is secondary POA regarding further care of patient. family was updated on patient's condition and current quality of life with concerns of surgical intervention due to poor GI motility and need for likely colostomy. Patient was poor candidate for surgical intervention family updated and made aware of possible risk of surgery. After multiple discussions family requested to speak with their primary care physician prior to making a decision for hospice care and Dr Mally ortez assisted with a care meeting with family. following the meeting all parties agreed on comfort care and a discharge to home ([facility]) with hospice. [facility] consulted and scheduled discharge to home with proper equipment delivered. I prescribed initial comfort medications at discharge and patient was transferred via EMS. Status at Discharge Functional status at discharge: bed bound Overall status at discharge: other (discharge to Hospice) Time Spent with Patient Time attestation: Total time spent providing and/or coordinating discharge services: Time spent: Greater than 30 minutes Exam Narrative: General: Chronically ill-appearing, severely malnourished nonverbal Head: encephalopathic at baseline Eyes: PERRLA, sclera clear ENT: Dry mucous membranes Cardiac: Normal S1 and S2. No murmur, gallops or friction rubs, peripheral pulses intact. Respiratory: Lungs clear in the upper lobes, crackles noted bilateral lower lobes, weak nonproductive cough, 2L NC Gastrointestinal: distended, very hypoactive bowel sounds. G-tube in place and clamped-not functioning : incontinence Extremities: contractures of bilateral upper extremity, quadriplegia Skin: skin around G-tube site appears to be fungal with erythema with leakage around site Neuro: Alert to painful stimuli DS: Data Data Completed and Pending Labs on day of discharge: Labs from last 24 hours 04/01/24 05:13 WBC 6.3 RBC 3.56 L Hgb 10.8 L Hct 32.9 L MCV 92.4 MCH 30.3 MCHC 32.8 RDW 13.9 Plt Count 322 MPV 9.5 Immature Gran % (Auto) 0.8 H Neut % (Auto) 50.1 Lymph % (Auto) 28.9 [place] % (Auto) 10.7 Eos % (Auto) 9.0 H Baso % (Auto) 0.5 Lymph # (Auto) 1.83 [place] # (Auto) 0.68 Eos # (Auto) 0.57 H Baso # (Auto) 0.03 Abs Immat Gran (auto) 0.05 H Absolute Neuts (auto) 3.17 Absolute Nucleated RBC 0.00 Nucleated RBC % 0.0 Sodium 141 Potassium 2.6 L Chloride 99 Carbon Dioxide 33 H Anion Gap 9 BUN 6 L Creatinine 0.51 L Estim Creat Clear Calc 54 Estimated GFR > 60 Glucose 73 Calculated Osmolality 288 Calcium 8.4 L Total Bilirubin 0.6 AST 46 H ALT 46 Alkaline Phosphatase 183 H Total Protein 6.7 Albumin 2.2 L Imaging Radiologist's impression: Radiology Results: ITS Impressions Chest/Abdomen/Pelvis CT 03/25/24 09:14 IMPRESSION: 1. Collapse of the right middle lobe and in near complete collapse of the left lower lobe and lingula with regions of hypoenhancement in the collapsed left lower lobe suspicious for superimposed pneumonia. 2. Stable appearance of the gallbladder with thickened murguia and unchanged central foraminal likely sequela of chronic cholecystitis. 3. Large amount of colonic stool with 8.7 cm ball of stool at rectum consistent with constipation with fecal impaction. 4. Endometrial complex measures 6 mm which would be mildly thickened in the absence of hormone replacement. Correlate with medication history and for any abnormal uterine bleeding and could consider pelvic ultrasound for further evaluation as clinically indicated. 5. 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 6. Percutaneous gastrostomy tube in the body the stomach. 7. Mild splenosis in the left upper quadrant. Discharge Plan Discharge Attending physician on discharge: Gulshan Ireland Discharging Clinician: Lilia Awad Anticipated Discharge Date/Time: 04/01/24 09:47 Patient Disposition: Hospice - Home Activity: other - see discharge instructions Diet: NPO Discharge Instructions: Discharged home with hospice care, they are delievered need equipment and prescriptions have been sent to your pharmacy. [facility] will continue to follow at home. Patient Instructions: Lorazepam (By mouth), Morphine, Rapid Release (By mouth), Atropine (By mouth), Hospice Care (GEN), Fall Prevention for Older Adults (DC) Stand Alone Forms: General Discharge Information Follow-up/Referrals: Adonis Bal, DO [Primary Care Provider] - (Please report when patient has passed) Discharge Medications: New lorazepam 2 mg/mL concentrate 0.5 mg PO Q4H PRN (Reason: anxiety) Qty: 30 0RF atropine 1 % drops 1 drp buccal Q4-6H PRN (Reason: secretions) Qty: 2 0RF acetaminophen 650 mg suppository 650 mg RECTAL Q4H PRN (Reason: fever or pain) Qty: 12 0RF ondansetron 4 mg tablet,disintegrating 4 mg PO Q6H PRN (Reason: nausea and vomiting) Qty: 20 0RF morphine concentrate 100 mg/5 mL (20 mg/mL) solution 10 mg PO Q4H PRN (Reason: pain) Qty: 30 0RF Discontinued acetaminophen 325 mg Tablet 650 mg feeding tube Q6H PRN (Reason: fever and pain) clotrimazole-betamethasone 1-0.05 % Cream 1 applic TOPICAL BID nystatin 100,000 unit/gram Powder 1 applic TOPICAL TID famotidine 40 mg/5 mL (8 mg/mL) suspension for reconstitution 2.5 ml feeding tube DAILY Rx Instructions: PUT 2.5 ML IN FEEDING TUBE DAILY levetiracetam 100 mg/mL solution 250 mg feeding tube DAILY Rx Instructions: GIVE 2.5 ML VIA FEEDING TUBE DIALY baclofen 20 mg tablet 20 mg PO BID PRN (Reason: muscle spasticity) Qty: 30 0RF Rx Instructions: Take 1/2 tablet BID loratadine [Allergy Relief (loratadine)] 5 mg/5 mL solution 5 ml feeding tube .QD Qty: 120 0RF Date of admission: 03/26/24 10:02 Primary Care Provider: Adonis Bal Admitting Provider: Gulshan Ireland Attending physician on admission: Lilia Awad Condition: Terminal Quality VTE Prophylaxis VTE prophylaxis: pharmacologic ordered -Patient's previous records reviewed on admission -ER notes reviewed in detail on admission -discussed all findings and current treatment plan with patient/Family/POA -Consultations reviewed for recommendations -Patient's disposition for safe discharge discussed with case repairer Dictation performed by [employer] direct speech recognition software, therefore staff appraiser variants and typographical errors may occur. Hospitalist MIPS Heart Failure (Exclusion) Patient has history of Heart Transplant or Left Ventricular Assistive Device?: No IF YES, STOP HERE Heart Failure (Qualifier) Patient has current or prior documentation of LVEF less than or equal to 40%, or mod/servere depressed LVSF?: No IF NO, STOP HERE
--- NOTE | 2024-04-01 12:21 | PC.NURSE ---
Called [facility] for transport to home for hospice care.
[2024-04-01] MEDS: MORPHINE SULFATE (*CRX) 2 MG/ML INJ IV PUSH (12:37)
--- NOTE | 2024-04-02 09:55 | PC.NURSE ---
Discharge call back attempted, no answer
--- NOTE | 2024-04-06 11:48 | PC.NURSE ---
Discharge call back unable to reach patient
== END 2024-04-01 12:55 | disposition hospice, home (50) | DRG 871 ==
LOC: CHSED 10:32 → CHS2ND 10:41
PROVIDERS: Nurse Practitioner Acute Care; Admitting Provider Internal Medicine; Emergency Provider Family Medicine; PCP Family Medicine; Visit Provider Nurse Practitioner Family
DX: A41.9 Sepsis, unspecified organism (principal); E43 Unspecified severe protein-calorie malnutrition; J18.9 Pneumonia, unspecified organism; K94.23 Gastrostomy malfunction; G93.40 Encephalopathy, unspecified; K57.32 Diverticulitis of large intestine without perforation or abscess without bleeding; S72.002K Fracture of unspecified part of neck of left femur, subsequent encounter for closed fracture with nonunion; Z68.1 Body mass index [BMI] 19.9 or less, adult; K94.29 Other complications of gastrostomy; K52.89 Other specified noninfective gastroenteritis and colitis; K81.1 Chronic cholecystitis; K56.41 Fecal impaction; E87.6 Hypokalemia; E88.09 Other disorders of plasma-protein metabolism, not elsewhere classified; G83.9 Paralytic syndrome, unspecified; G40.909 Epilepsy, unspecified, not intractable, without status epilepticus; Z87.820 Personal history of traumatic brain injury; Z51.5 Encounter for palliative care
CPT/HCPCS: 36415; 71260; 74177; 80053; 80202; 81001; 83605; 83735; 84484; 85025; 86140; 86738; 87040; 87081; 87449; 87637; 87641; 87899; 93005; 94640; 96361; 96365; 96366; 96367; 96375; 99285; A9270; G0378; J1650; J1940; J1953; J2185; J2270; J2543; J2765; J3370; J3475; J3480; J7030; J7070; P9047; Q9967